=== PATIENT | male | born 1945 | race Caucasian/White ===

== ENCOUNTER 2016-07-30 06:57 | Day surgery (SDC) | payer OTHER ==
[2016-07-30] MEDS ORDERED: LR 1,000 ML IV ONE (07:42)
[2016-07-30] MEDS ORDERED: LIDOCAINE 1% 5 ML SDV ID PRN (07:42)
[2016-07-30] MEDS ORDERED: LIDOCAINE 1% 5 ML SDV ONE (07:44)
[2016-07-30] MEDS ORDERED: PROPOFOL/EMULSION 500 MG/50 ML BOTTLE IV ONE (08:42)
[2016-07-30] MEDS ORDERED: epHEDrine SULFATE 10 MG/ML SYR ONE ×2 (09:18→09:24)
--- NOTE | 2016-07-30 10:36 | GPN ---
[f rep st] PROCEDURE NOTE PREPROCEDURE DIAGNOSIS: Need for screening colonoscopy. POSTPROCEDURE DIAGNOSIS: Two small colon polyps, removed. PROCEDURE: Colonoscopy with snare. MEDICATION: Monitored anesthesia care. INDICATIONS: Darian Naylor is a 71-year-old gentleman here for screening colonoscopy. He had atrial fibrillation and takes Eliquis. His Eliquis was stopped 2 days prior to the procedure. The patient is ASA class 3. Risks and benefits of the procedure were discussed with the patient and consent obtained. Risks include, but not limited to, bleeding, perforation, risks related to sedation. DESCRIPTION OF PROCEDURE: The adult colonoscope was advanced to the terminal ileum which appeared normal. The cecum, appendiceal orifice, IC valve, ascending colon, hepatic flexure appeared normal. There were two 6 mm polyps along folds in the transverse colon which were removed with cold snare polypectomy technique and retrieved for pathology. The splenic flexure, descending colon, sigmoid colon and rectum were normal. Retroflexed views in the rectum were normal. IMPRESSION: Two transverse colon polyps removed using cold snare polypectomy technique. Each measured 6 mm in size. RECOMMENDATIONS: 1. Advance diet as tolerated. 2. Discharge to home with escort. 3. Okay to resume previous medications including Eliquis. 4. Follow up final pathology results. Pathology will be available within 10 days. 5. Repeat colonoscopy to be determined based on colon pathology. If the polyp is an adenomatous polyp, he should have a colonoscopy in 5 years. Thank you for allowing me to participate in the care of your patient. Please do not hesitate to call with questions. /[id number]/MODL MTDD
== END 2016-07-30 11:15 | disposition home or self-care (01) ==
LOC: FSGY 06:57
PROVIDERS: ATTEND Internal Medicine Gastroenterology
PROC: 0DBL8ZX Excision of Transverse Colon, Via Natural or Artificial Opening Endoscopic, Diagnostic (ICD-10-PCS; principal; 2016-07-30 08:45)
DX: Z12.11 Encounter for screening for malignant neoplasm of colon (principal); K63.5 Polyp of colon; I48.0 Paroxysmal atrial fibrillation; N40.0 Benign prostatic hyperplasia without lower urinary tract symptoms; Z79.01 Long term (current) use of anticoagulants
CPT/HCPCS: J2704

== ENCOUNTER 2016-11-20 10:08 | Emergency (ER) | payer OTHER ==
[2016-11-20 10:26] VITALS: TEMP 98
--- NOTE | 2016-11-20 10:26 | EDPHY ---
H & P Time Seen by Provider: 11/20/16 10:12 HPI/ROS: CHIEF COMPLAINT: Fall HISTORY OF PRESENT ILLNESS: Patient is a 71-year-old man who comes to the emergency department with a caregiver. He fell backwards down the steps yesterday. He refused to go to the hospital at that time. He was walking up the steps caring glass of water on a tray when he began to drop the water and lost his balance when he tried to catch it and fell backwards down the stairs. He is not sure how many steps he fell down. He has a small abrasion to the left parietal region. He denies neck pain. He has bruising to his left axilla and triceps region. Also to his left hip. He is ambulating without difficulty. He is unable to lift his left arm above his head which he is able to do a baseline. He denies loss of consciousness. He denies chest pain or shortness of breath. He has a history of CVA and NE and takes anticoagulants. REVIEW OF SYSTEMS: Constitutional: denies: chills, fever, recent illness, recent injury EENTM: denies: blurred vision, double vision, nose congestion Respiratory: denies: cough, shortness of breath Cardiac: denies: chest pain, irregular heart rate, lightheadedness, palpitations Gastrointestinal/Abdominal: denies: abdominal pain, diarrhea, nausea, vomiting, blood streaked stools Genitourinary: denies: dysuria, frequency, hematuria, pain Musculoskeletal: See HPI Skin: See HPI Neurological: denies: headache, numbness, paresthesia, tingling, dizziness, weakness Hematologic/Lymphatic: denies: blood clots, easy bleeding, easy bruising Immunologic/allergic: denies: HIV/AIDS, transplant EXAM: GENERAL: Well-appearing, well-nourished and in no acute distress. HEAD: Atraumatic, normocephalic. EYES: Pupils equal round and reactive to light, extraocular movements intact, sclera anicteric, conjunctiva are normal. ENT: TMs normal, nares patent, oropharynx clear without exudates. Moist mucous membranes. NECK: Normal range of motion, supple without lymphadenopathy or JVD. No step- offs or tenderness. LUNGS: Breath sounds clear to auscultation bilaterally and equal. No wheezes rales or rhonchi. HEART: Regular rate and rhythm without murmurs, rubs or gallops. ABDOMEN: Soft, nontender, normoactive bowel sounds. No guarding, no rebound. No masses appreciated. BACK: No CVA tenderness, no spinal tenderness, step-offs or deformities EXTREMITIES: Bruising to left elbow with small skin tears, bruising to left triceps region. Decreased range of motion of left arm , no pitting or edema. No clubbing or cyanosis. NEUROLOGICAL: Cranial nerves II through XII grossly intact. Normal speech, normal but slow gait with a cane. 5/5 strength, normal movement in all extremities, normal sensation PSYCH: Normal mood, normal affect. SKIN: Significant bruising as described above, small abrasion to left parietal region. Source: Patient Exam Limitations: No limitations - Medical/Surgical History Hx Asthma: No Hx Chronic Respiratory Disease: No Hx Diabetes: No Hx Cardiac Disease: No Hx Renal Disease: No Hx Cirrhosis: No Hx Alcoholism: No Hx HIV/AIDS: No Hx Splenectomy or Spleen Trauma: No Other PMH: Right ACL, Stroke, Left sided deficits, dvt, - Family History Significant Family History: No pertinent family hx - Social History Smoking Status: Never smoked Alcohol Use: Sober Drug Use: None Constitutional: Initial Vital Signs Temperature (C) 36.6 C 11/20/16 10:22 Heart Rate 70 11/20/16 10:22 Respiratory Rate 18 11/20/16 10:22 Blood Pressure 122/71 H 11/20/16 10:22 O2 Sat (%) 97 11/20/16 10:22 O2 Delivery Mode Room Air Allergies/Adverse Reactions: No Known Allergies Allergy (Verified 07/09/16 10:14) Home Medications: Medication Instructions Recorded Apixaban [Eliquis] 5 mg PO BID #60 tab 01/04/16 Tamsulosin HCl [Flomax 0.4 MG (*)] 0.4 mg PO DAILY #30 cap 01/04/16 Metoprolol Succinate 04/25/16 Eye Vitamin-Minerals Tablet 07/09/16 Medical Decision Making - Diagnostics Imaging Results: Imaging Impressions Abdomen CT 11/20/16 10:18 Impression: 1. Nondisplaced posterior left 12th rib fracture. 2. Minimal subcutaneous edema along the left greater trochanter. No acute hip/ pelvic fracture or evidence of active bleeding. 3. No evidence of acute solid organ or bowel injury. 4. Small nodular spleen is unchanged. Recommend MRI follow up as per Dr. Angel Saavedra's recommendation in April 2016. Findings discussed with Emergency Department physician, Dr. Dharmesh Jamison on November 20, 2016 at 11:[address] 11/20/16 10:18 Impression: 1. Acute nondisplaced posterior left 12th rib fracture. 2. Acute nondisplaced left-sided manubrial fracture. 3. No acute thoracic spine fracture. 4. No evidence of acute aortic injury. 5. Clear lungs. No pneumothorax or pulmonary contusion. Findings discussed with Emergency Department physician, Dharmesh Jamison on 2016, 11:[address] 11/20/16 10:18 Impression: 1. Remote infarct right insular cortex, inferior parietal lobe, and basal ganglia. 2. No hemorrhage, mass effect, or definite acute peripheral infarct. 3. Stable mild to moderate microvascular ischemic disease. 4. Stable mild to moderate age-related atrophy. Findings discussed with Dharmesh Jamison M.D. at 1127 hour, 11/20/2016. Humerus X-Ray 11/20/16 10:18 Impression: No evidence for acute fracture. Chronic findings as above. Cervical Spine CT 11/20/16 10:27 Impression: 1. No acute osseous abnormality seen about the cervical spine. 2. Mild to moderate degenerative disk disease. 3. Mild to moderate left-sided facet hypertrophy at C2-C3.. These findings were discussed by telephone with Dr. Dharmesh Jamison at 11:30 hrs. Imaging: Discussed imaging studies w/ call manager Radiologist ED Course/Re-evaluation: We discussed the CT results. The patient and caregiver are happy. He has an incentive spirometer that he will continue to use. He declines pain medication or prescription. His abrasions have been cleaned and dressed. We discussed recovery and indications for returning. Differential Diagnosis: Partial list of the Differential diagnosis considered include but were not limited to; contusion, abrasion, rib fracture and although unlikely based on the history and physical exam, I also considered pneumothorax, splenic injury, kidney injury, hip fracture, humeral head fracture, clavicle fracture intracranial injury, cervical spine is. I discussed these differential diagnoses and the plan with the patient as well as the usual and expected course. The patient understands that the diagnosis is provisional and that in medicine we are not always correct and that further workup is often warranted. Usual and customary warnings were given. All of the patient's questions were answered. The patient was instructed to return to the emergency department should the symptoms at all worsen or return, otherwise to followup with the physician as we discussed. - Data Points Laboratory Results: Laboratory Results 11/20/16 10:28 11/20/16 10:28 11/20/16 11/20/16 11/20/16 10: 10: 10: WBC 7.98 10^3/uL 10^3/uL (3.80-9.50) RBC 4.07 10^6/uL L 10^6/uL (4.40-6.38) Hgb 13.3 g/dL L g/dL (13.7-17.5) Hct 37.7 % L % (40.0-51.0) MCV 92.6 fL fL (81.5-99.8) MCH 32.7 pg pg (27.9-34.1) MCHC 35.3 g/dL g/dL (32.4-36.7) RDW 13.2 % % (11.5-15.2) Plt Count 216 10^3/uL 10^3/uL (150-400) MPV 9.0 fL fL (8.7-11.7) Neut % (Auto) 78.1 % H % (39.3-74.2) Lymph % (Auto) 10.2 % L % (15.0-45.0) [place] % (Auto) 11.3 % % (4.5-13.0) Eos % (Auto) 0.0 % L % (0.6-7.6) Baso % (Auto) 0.1 % L % (0.3-1.7) Nucleat RBC Rel Count 0.0 % % (0.0-0.2) Absolute Neuts (auto) 6.24 10^3/uL 10^3/uL (1.70-6.50) Absolute Lymphs (auto) 0.81 10^3/uL L 10^3/uL (1.00-3.00) Absolute Monos (auto) 0.90 10^3/uL H 10^3/uL (0.30-0.80) Absolute Eos (auto) 0.00 10^3/uL L 10^3/uL (0.03-0.40) Absolute Basos (auto) 0.01 10^3/uL L 10^3/uL (0.02-0.10) Absolute Nucleated RBC 0.00 10^3/uL 10^3/uL (0-0.01) Immature Gran % 0.3 % % (0.0-1.1) Immature Gran # 0.02 10^3/uL 10^3/uL (0.00-0.10) PT 14.2 SEC SEC (12.0-15.0) INR 1.13 (0.83-1.16) APTT 30.1 SEC SEC (23.0-38.0) Sodium 132 mEq/L L mEq/L (134-144) Potassium 4.3 mEq/L mEq/L (3.5-5.2) Chloride 97 mEq/L mEq/L (97-110) Carbon Dioxide 23 mEq/l mEq/l (22-31) Anion Gap 12 mEq/L mEq/L (8-16) BUN 13 mg/dL mg/dL (7-23) Creatinine 0.7 mg/dL mg/dL (0.7-1.3) Estimated GFR > 60 Glucose 111 mg/dL H mg/dL (70-100) Calcium 8.6 mg/dL mg/dL (8.5-10.4) Departure - Departure Disposition: Home, Routine, Self-Care Clinical Impression: Abrasion Rib fracture Qualifiers: Encounter type: initial encounter Rib fracture type: single rib Fracture type: closed Laterality: left Qualified Code(s): S22.32XA - Fracture of one rib, left side, initial encounter for closed fracture Contusion Qualifiers: Encounter type: initial encounter Contusion area: thoracic wall Contusion of thoracic wall detail: unspecified area of thoracic wall Qualified Code(s): S20.20XA - Contusion of thorax, unspecified, initial encounter Condition: Fair Instructions: Rib Fracture (ED), Abrasion (ED) Referrals: WILLIE EVANS [Other] - As per Instructions
[2016-11-20 10:34] LABS: % IMMATURE GRANULYOCYTES 0.3 % (0.0-1.1); ABSOLUTE IMMATURE GRANULOCYTES 0.02 10^3/uL (0.00-0.10); ADD DIFF? NO; ADD MORPH? NO; ADD SCAN? NO; ATYPICAL LYMPHOCYTE FLAG 10 (0-99); FRAGMENT RBC FLAG 0 (0-99); HEMATOCRIT 37.7 % (40.0-51.0); HEMOGLOBIN 13.3 g/dL (13.7-17.5); LEFT SHIFT FLG 0 (0-99); LIPEMIA HEMOLYSIS FLAG 90 (0-99); MEAN CELL HEMOGLOBIN 32.7 pg (27.9-34.1); MEAN CELL HEMOGLOBIN CONCENTR. 35.3 g/dL (32.4-36.7); MEAN CELL VOLUME 92.6 fL (81.5-99.8); PLATELET CLUMPS FLAG 0 (0-99); PLATELET COUNT 216 10^3/uL (150-400); RED BLOOD CELL COUNT 4.07 10^6/uL (4.40-6.38); RED CELL DISTRIBUTION WIDTH 13.2 % (11.5-15.2)
[2016-11-20] MEDS ORDERED: IOPAMIDOL (ISOVUE-300) 100 ML BTL IV ONE (10:43)
[2016-11-20 10:47] LABS: INR 1.13 (0.83-1.16); PROTIME(PATIENT) 14.2 SEC (12.0-15.0)
[2016-11-20 10:48] LABS: APTT 30.1 SEC (23.0-38.0)
[2016-11-20 10:50] LABS: ANION GAP 12 mEq/L (8-16); CALCIUM 8.6 mg/dL (8.5-10.4); CARBON DIOXIDE 23 mEq/l (22-31); CHLORIDE 97 mEq/L (97-110); CREATININE 0.7 mg/dL (0.7-1.3); GLOMERULAR FILTRATION RATE > 60; GLUCOSE 111 mg/dL (70-100); POTASSIUM 4.3 mEq/L (3.5-5.2); SODIUM 132 mEq/L (134-144)
[2016-11-20 12:04] VITALS: BP 139/96; PULSE 67; RESP 18; O2SAT 97
== END 2016-11-20 12:01 | disposition home or self-care (01) ==
LOC: CED 10:08
DX: S00.01XA Abrasion of scalp, initial encounter (principal); S22.32XA Fracture of one rib, left side, initial encounter for closed fracture; I25.2 Old myocardial infarction; Z86.73 Personal history of transient ischemic attack (TIA), and cerebral infarction without residual deficits; Z79.01 Long term (current) use of anticoagulants; W10.8XXA Fall (on) (from) other stairs and steps, initial encounter; Y99.8 Other external cause status; Y93.01 Activity, walking, marching and hiking
CPT/HCPCS: 70450; 71260; 72125; 73060; 74177; 99285; Q9967; 80048-PO; 85025-PO; 85610-PO; 85730-PO

== ENCOUNTER 2017-04-10 08:03 | Emergency (ER) | payer OTHER ==
[2017-04-10 08:19] VITALS: O2SAT 97
[2017-04-10 09:15] LABS: COLOR YELLOW; LEUKOCYTE ESTERASE,URINE NEGATIVE (NEGATIVE); NITRITE,URINE NEGATIVE (NEGATIVE)
--- NOTE | 2017-04-10 10:32 | EDPHY ---
H & P Time Seen by Provider: 04/10/17 08:14 HPI/ROS: 71-year-old male presenting playing of fall 5 days ago landing on his left arm left side presents today complaining of bruising to his left upper arm and left posterior ribs. No difficulty breathing patient denies any significant pain. His primary complaint is that he has decreased range of motion of his left shoulder. This family member is also concerned about a large bruise on his left upper arm. No fevers no chills No loss of consciousness Review of systems As per HPI General no fever no chills no weakness HEENT no eye pain no eye discharge. No eye redness, no sore throat Respiratory no cough, no shortness of breath Cardiac no chest pain, no peripheral edema GI no abdominal pain, no diarrhea, no constipation, no nausea, no vomiting no flank pain, no hematuria, no dysuria Musculoskeletal no myalgias, positive joint pain Heme positive easy bruising, no easy bleeding Endo no polyuria, no polydipsia Skin no rashes, no pruritus Neuro no syncope, no dizziness, no headaches Psych is no suicidal ideation, no homicidal ideation Past Medical/Surgical History: Atrial fibrillation Social History: No alcohol, no drugs Smoking Status: Never smoked Physical Exam: 71-year-old male alert and oriented in no acute distress nontoxic appearance, afebrile Atraumatic normocephalic Neck supple no JVD Lungs clear to auscultation bilaterally Heart regular rate and rhythm without murmur rub or gallop Abdomen nondistended bowel sounds present soft nontender Extremities lower extremities no cyanosis clubbing or edema Left upper extremity Ecchymosis extending and scattered from left shoulder to left elbow Lateral upper arm with hematoma approximately 5 x 5 cm Full range of motion of left shoulder left elbow left wrist digits Good distal pulses good capillary refill Patient able to flex biceps bilaterally, equal Patient with strong gwot ia/ilo intelligence support bilaterally, equal Slightly decreased range of motion at left shoulder, able to touch hand to top of head not able to align biceps against his ear Good external and internal rotation No evidence of gross laxity Constitutional: Initial Vital Signs Heart Rate 52 L 04/10/17 08:16 Respiratory Rate 16 04/10/17 08:16 Blood Pressure 133/66 H 04/10/17 08:16 O2 Sat (%) 97 04/10/17 08:16 O2 Delivery Mode Room Air Allergies/Adverse Reactions: No Known Allergies Allergy (Verified 04/10/17 08:13) Home Medications: Medication Instructions Recorded Metoprolol Succinate 04/25/16 Eye Vitamin-Minerals Tablet 07/09/16 Eliquis 04/10/17 Tamsulosin HCl 04/10/17 Medical Decision Making - Diagnostics Imaging Results: Imaging Impressions Shoulder X-Ray 04/10/17 08:36 Impression: No acute findings in the shoulder. Humerus X-Ray 04/10/17 08:37 Impression: No acute osseous findings. Ribs w/Chest X-Ray 04/10/17 08:38 Impression: No acute rib fracture identified. ED Course/Re-evaluation: Patient seen and evaluated for fall 5 days ago with ongoing X-rays negative for fracture Positive osteoarthritis Impression Left shoulder sprain Left upper arm contusion/hematoma Left lower posterior ribs contusion Plan May apply heat to area of hematoma Follow up with primary care physician as needed or if not improving Differential Diagnosis: Left shoulder dislocation, left shoulder sprain, left humeral head fracture, left upper arm contusion, left shoulder contusion, left rib contusion Left upper arm hematoma - Data Points Laboratory Results: 04/10/17 09:12 Urine Color YELLOW Urine Appearance CLEAR Urine pH 6.0 (5.0-7.5) Ur Specific [place] 1.015 (1.002-1.030) Urine Protein NEGATIVE (NEGATIVE) Urine Ketones NEGATIVE (NEGATIVE) Urine Blood NEGATIVE (NEGATIVE) Urine Nitrate NEGATIVE (NEGATIVE) Urine Bilirubin NEGATIVE (NEGATIVE) Urine Urobilinogen 0.2 EU EU (0.2-1.0) Ur Leukocyte Esterase NEGATIVE (NEGATIVE) Urine Glucose NEGATIVE (NEGATIVE) Departure - Departure Disposition: Home, Routine, Self-Care Clinical Impression: Sprain of left shoulder, Contusion of left upper arm, Contusion of rib on left side, Fall Condition: Good Instructions: Shoulder Sprain (ED), Hematoma (ED), Rib Contusion (ED) Referrals: Yoni Lakhani MD [Primary Care Provider] - As per Instructions
[2017-04-10 11:22] VITALS: BP 137/66; PULSE 57; RESP 20
== END 2017-04-10 10:38 | disposition home or self-care (01) ==
LOC: CED 08:03
DX: S43.402A Unspecified sprain of left shoulder joint, initial encounter (principal); S40.022A Contusion of left upper arm, initial encounter; S20.222A Contusion of left back wall of thorax, initial encounter; W18.39XA Other fall on same level, initial encounter
CPT/HCPCS: 71101-PO; 73030-PO; 73060-PO; 81003-PO

== ENCOUNTER 2018-04-28 17:38 | Inpatient (IN) | payer OTHER ==
--- NOTE | 2018-04-28 18:00 | EDPHY ---
HPI/HX/ROS/PE/MDM Narrative: CHIEF COMPLAINT: Shortness of breath HPI: The patient is an anticoagulated (Eliquis) 72 y/o male with a history atrial fibrillation complaining of a cough and shortness of breath, onset yesterday. Several hours ago the cough became productive and he had a subjective fever at home. The shortness of breath is exacerbated when he tries walking. Currently he is feeling short of breath while lying in bed. He denies headache, chest pain , abdominal pain, urinary or bowel complaints, numbness, paresthesias. He did receive a flu shot one week ago. REVIEW OF SYSTEMS: Aside from elements discussed in the HPI, a comprehensive 10 system review of systems is otherwise negative. PMH: Atrial fibrillation, CVA (2016) SOCIAL HISTORY: Family at bedside, lives in [place], retired PHYSICAL EXAM: General: Patient is alert. ENT: Eyes are normal to inspection. ENT inspection normal. Neck: Normal inspection. Full range of motion. Respiratory: Tachypenic, 3 word dyspnea, diminished lung sounds with coarse rhonchi bilaterally. Cardiovascular: Regular rate and rhythm. Strong peripheral pulses. Normal cap refill. Abdomen: The abdomen is nontender to palpation. There are no peritoneal signs. There are normal bowel sounds. Back: Normal to inspection. No tenderness to palpation. Skin: Normal color. No rash. Warm and dry. Extremities: Normal appearance. Full range of motion. Neuro: Oriented x3. Normal motor function. Normal sensory function. ED Course: 1812: Patient has an elevated troponin of 1.66 182: EKG was ordered and interpreted by myself. Please see [employer] system for official reading. 1830: Patient's lactate is elevated at 2.5 [place] [address]; chest x-ray still pending. 183: I spoke with the radiologist, who reports that there are no significant acute findings. 1840: Patient placed on BiPAP as he is still working to breathe. 1904: I reassessed the patient and discussed the plan for admission, which he is comfortable with. He also appears more comfortable and less hypoxic. Patient has stopped BiPAP. 2009: Patient is working hard to breath again; he will be placed on the BiPAP again. 2024: I consulted with the hospitalist service, Dr. Arredondo accepts admission of this patient. Respiratory PCR still pending; 750mg IV Levaquin and 125mg IV Solu -Medrol administered. 2110: Reassessed patient; he is agitate and tachycardic with a heart rate going up to 180. He is in rapid A-fib now; patient will be transferred to room 1. 2120: Reassessed patient, he is still in between rapid A-fib and SVT with a rate of 178 and is using accessory muscles to breathe. Repeat EKG ordered. 10mg IV Diltiazem administered. 2121: EKG was ordered and interpreted by myself. Please see [employer] system for official reading. 2123: Patient's heart rate has decreased to 110. EKG was ordered and interpreted by myself. Please see [employer] system for official reading. 2125: I consulted with the hospitalist regarding the change in the patient's status. This patient will need to be intubated and have an echocardiogram. 2140: Reassessed patient and discussed the risks and benefits regarding an intubation. He reports that is feeling more tired than when he initially presented to the emergency department. Additional 10mg IV Diltiazem administered as his rate has increased to 163. 2158: Reassessed patient, he is comfortable with plan for intubation. Dr. Arredondo has consulted with Dr. Hayes who has authorized the echo. Procedure: Rapid sequence intubation. Indication for the procedure was airway protection and respiratory failure. The patient was preoxygenated with 100% oxygen by face mask. The patient was given the following IV medications: 20mg IV Etomidate and 100mg IV succinylcholine. The patient was orally endotracheally intubated under direct visualization with a 7.5 ETT. In line stabilization was performed during the procedure. Tracheal intubation was confirmed with misting on the tube; breath sounds were auscultated equally bilaterally; appropriate color change with [place] [employer] CO2 detector. Chest X-ray shows ETT in good position. The procedure was performed by myself, Dr. Elder. Critical care time spent by me, Dr. Lorenzo, exclusively with this patient was 120 minutes, exclusive of PA time and exclusive of procedures. The organ system at risk was cardiopulmonary and I gave IV Diltiazem, placed him on a BiPAP and preformed a rapid sequence intubation to prevent worsening of the patients condition. - Data Points Imaging Results: Imaging Impressions Chest X-Ray 04/28/18 18:00 Impression: 1. Mild peribronchial thickening which can be seen with bronchitis/airways disease. 2. Additional findings as above. Imaging: Discussed imaging studies w/ block sawyer Radiologist, I viewed and interpreted images myself Laboratory Results: Laboratory Results 04/28/18 18:00 04/28/18 18:00 04/28/18 04/28/18 04/28/18 18:03 18:00 18:00 WBC RBC Hgb Hct MCV MCH MCHC RDW Plt Count MPV Neut % (Auto) Lymph % (Auto) [place] % (Auto) Eos % (Auto) Baso % (Auto) Nucleat RBC Rel Count Absolute Neuts (auto) Absolute Lymphs (auto) Absolute Monos (auto) Absolute Eos (auto) Absolute Basos (auto) Absolute Nucleated RBC Immature Gran % Seg Neutrophils % Band Neutrophils % Lymphocytes % Monocytes % Eosinophils % Basophils % Metamyelocytes % Myelocytes % Promyelocytes % Blast Cells % Immature Gran # Absolute Seg Neuts Absolute Band Neuts Absolute Lymphocytes Absolute Monocytes Absolute Eosinophils Absolute Basophils Absolute Metamyelocyte Absolute Myelocytes Absolute Promyelocytes Absolute Plasma Cells Nucleated RBCs RBC/WBC/PLT Morphology Absolute Blast Cells Plasma Cells % Platelet Estimate VBG Lactic Acid 2.5 mmol/L H mmol/L (0.7-2.1) Sodium 134 mEq/L L mEq/L (135-145) Potassium 4.3 mEq/L mEq/L (3.3-5.0) Chloride 98 mEq/L mEq/L (97-110) Carbon Dioxide 22 mEq/l mEq/l (22-31) Anion Gap 14 mEq/L mEq/L (6-14) BUN 15 mg/dL mg/dL (7-23) Creatinine 0.8 mg/dL mg/dL (0.7-1.3) Estimated GFR > 60 Glucose 157 mg/dL H mg/dL (70-100) Calcium 9.3 mg/dL mg/dL (8.5-10.4) POC Troponin I 1.66 ng/mL H ng/mL (0.00-0.08) NT-Pro-B Natriuret Pep 37141 pg/mL H pg/mL (0-125) 04/28/18 18:00 WBC 11.64 10^3/uL H 10^3/uL (3.80-9.50) RBC 4.36 10^6/uL L 10^6/uL (4.40-6.38) Hgb 13.8 g/dL g/dL (13.7-17.5) Hct 40.3 % % (40.0-51.0) MCV 92.4 fL fL (81.5-99.8) MCH 31.7 pg pg (27.9-34.1) MCHC 34.2 g/dL g/dL (32.4-36.7) RDW 13.4 % % (11.5-15.2) Plt Count 207 10^3/uL 10^3/uL (150-400) MPV 10.2 fL fL (8.7-11.7) Neut % (Auto) Not Reported Lymph % (Auto) Not Reported [place] % (Auto) Not Reported Eos % (Auto) Not Reported Baso % (Auto) Not Reported Nucleat RBC Rel Count Not Reported Absolute Neuts (auto) Not Reported Absolute Lymphs (auto) Not Reported Absolute Monos (auto) Not Reported Absolute Eos (auto) Not Reported Absolute Basos (auto) Not Reported Absolute Nucleated RBC Not Reported Immature Gran % Not Reported Seg Neutrophils % 62.0 % % Band Neutrophils % 23.0 % % Lymphocytes % 6.0 % % Monocytes % 9.0 % % Eosinophils % 0.0 % % Basophils % 0.0 % % Metamyelocytes % 0.0 % % Myelocytes % 0.0 % % Promyelocytes % 0.0 % % Blast Cells % 0.0 % % Immature Gran # Not Reported Absolute Seg Neuts 7.22 10^/uL H 10^/uL (1.70-6.50) Absolute Band Neuts 2.68 10^3/uL H 10^3/uL (0.00-0.70) Absolute Lymphocytes 0.70 10^3/uL L 10^3/uL (1.00-3.00) Absolute Monocytes 1.05 10^3/uL H 10^3/uL (0.30-0.80) Absolute Eosinophils 0.00 10^3/uL L 10^3/uL (0.03-0.40) Absolute Basophils 0.00 10^3/uL L 10^3/uL (0.02-0.10) Absolute Metamyelocyte 0.00 10^3/mL 10^3/mL (0.00-0.00) Absolute Myelocytes 0.00 10^3/mL 10^3/mL (0.00-0.00) Absolute Promyelocytes 0.00 10^3/uL 10^3/uL (0.00-0.00) Absolute Plasma Cells 0.00 10^3/uL 10^3/uL (0.00-0.00) Nucleated RBCs 0 /100 WBC /100 WBC (0-0) RBC/WBC/PLT Morphology NORMAL (NORMAL) Absolute Blast Cells 0.00 10^3/uL 10^3/uL (0.00-0.00) Plasma Cells % 0.0 % % Platelet Estimate ADEQUATE (ADEQ) VBG Lactic Acid Sodium Potassium Chloride Carbon Dioxide Anion Gap BUN Creatinine Estimated GFR Glucose Calcium POC Troponin I NT-Pro-B Natriuret Pep Medications Given: Diltiazem HCl (Cardizem 25 Mg/5 Ml Vial) 10 mg IVP ONCE AUREA Stop: 10/25/18 22:14 Last Admin: 04/28/18 22:05 Dose: 10 mg Diltiazem HCl (Cardizem 25 Mg/5 Ml Vial) 10 mg IVP ONCE AUREA Stop: 10/25/18 22:14 Last Admin: 04/28/18 22:04 Dose: 10 mg Propofol (Diprivan 10 Mg/Ml (Premix)) 100 mls @ 0 mls/hr IV CONT AUREA; Titrate PRN Reason: Protocol Stop: 10/25/18 22:59 Last Admin: 04/28/18 22:12 Dose: 100 mls Discontinued Medications Albuterol/Ipratropium (Duoneb) 3 ml IH EDNOW ONE Stop: 04/28/18 20:41 Last Admin: 04/28/18 21:02 Dose: 3 ml Etomidate (Etomidate) 20 mg IVP ONCE ONE Stop: 04/28/18 22:03 Last Admin: 04/28/18 22:05 Dose: 20 mg Levofloxacin/Dextrose (Levaquin 750 Mg (Premix)) 150 mls @ 100 mls/hr IV EDNOW ONE PRN Reason: Protocol Stop: 04/28/18 21:44 Last Admin: 04/28/18 20:24 Dose: 150 mls Methylprednisolone Sodium Succinate (Solu-Medrol) 125 mg IVP EDNOW ONE Stop: 04/28/18 20:40 Last Admin: 04/28/18 21:02 Dose: 125 mg Succinylcholine Chloride (Quelicin) 100 mg IVP ONCE ONE Stop: 04/28/18 22:03 Last Admin: 04/28/18 22:06 Dose: 100 mg Point of Care Test Results: Chemistry 04/28/18 18:03 POC Troponin I 1.66 ng/mL H ng/mL (0.00-0.08) General Time Seen by Provider: 04/28/18 17:57 Initial Vital Signs: Initial Vital Signs Temperature (C) 36.5 C 04/28/18 17:42 Heart Rate 82 04/28/18 17:42 Respiratory Rate 24 H 04/28/18 17:42 Blood Pressure 108/74 04/28/18 17:42 O2 Sat (%) 93 04/28/18 17:42 O2 Delivery Mode Bi-Pap O2 (L/minute) 2 Allergies/Adverse Reactions: No Known Allergies Allergy (Verified 04/28/18 17:42) Home Medications: Medication Instructions Recorded Apixaban [Eliquis] 5 mg PO BID 04/28/18 Tamsulosin HCl [Flomax 0.4 MG (*)] 0.4 mg PO HS 04/28/18 Departure - Departure Disposition: [facility] Inpatient Acute Clinical Impression: Rapid atrial fibrillation, Elevated troponin Acute respiratory failure Qualifiers: Respiratory failure complication: unspecified whether with hypoxia or hypercapnia Qualified Code(s): J96.00 - Acute respiratory failure, unspecified whether with hypoxia or hypercapnia Condition: Critical Report Scribed for: David Lorenzo Report Scribed by: Zehra Tran Date of Report: 04/28/18 Time of Report: 18:27 Physician Review and Approval Statement: Portions of this note were transcribed by an ED scribe. I personally performed the history, physical exam, and medical decision making; and confirm the accuracy of the information in the transcribed note.
[2018-04-28 18:25] LABS: PLATELET COUNT 207 10^3/uL (150-400)
[2018-04-28] MEDS ORDERED: methylPREDNISolone SOD SUCC 125 MG/2 ML VIAL IVP ONE (20:39)
[2018-04-28] MEDS ORDERED: ONDANSETRON DISINTEGRATING 4 MG TAB PO PRN (20:40)
[2018-04-28] MEDS ORDERED: IPRATROPIUM/ALBUTEROL 3 ML DEYVIAL IH ONE (20:40)
[2018-04-28] MEDS ORDERED: ACETAMINOPHEN 325 MG TAB PO PRN (20:40)
[2018-04-28] MEDS ORDERED: ONDANSETRON 4 MG/2 ML VIAL IVP PRN (20:40)
[2018-04-28] MEDS ORDERED: DILTIAZEM 25 MG/5 ML VIAL IVP ONE (21:20)
[2018-04-28] MEDS ORDERED: APIXABAN 5 MG TAB PO SCH (21:30)
[2018-04-28] MEDS ORDERED: SUCCINYLCHOLINE CHLORIDE 200 MG/10 ML VIAL IVP ONE (22:02)
[2018-04-28] MEDS ORDERED: ETOMIDATE 40 MG/20 ML INJ IVP ONE (22:02)
[2018-04-28] MEDS ORDERED: PROPOFOL/EMULSION 1,000 MG/100 ML BOTTLE IV ONE (22:02)
[2018-04-28] MEDS ORDERED: DILTIAZEM 25 MG/5 ML VIAL IVP SCH ×2 (22:15)
[2018-04-28] MEDS ORDERED: fentaNYL 100 MCG/2 ML INJ IVP ONE (22:25)
--- NOTE | 2018-04-28 22:50 | PDGENHP ---
History and Physical - Chief Complaint Acute shortness of breath - History of Present Illness Primary care provider: Unknown Primary director of solutions architecture: Unknown HPI: 72-year-old male presenting with acute shortness of breath with associated sore throat, productive cough, subjective fever, onset of symptoms on the day prior to this presentation. Upon arrival, the patient was notably 2- 3 word dyspneic, with audibly labored breathing. His breath sounds were interpreted be secondary to acute reactive airway disease, and he was administered IV steroids, DuoNeb treatment, IV antibiotics. His venous lactic acid level was also elevated, but given the absence of hypotension, it was decided not to initiate him on the sepsis protocol for patient safety reasons, [place] [address], his troponin was elevated 1.66, and we were concerned for potentiate Ng congestive heart failure exacerbation if he received aggressive IV fluids. During the course of his emergency department evaluation, the patient was placed on BiPAP therapy but continued to demonstrate significant dyspnea, with a respiratory rate between 30 and 40, visibly labored, visibly tiring out. Although his ABG demonstrated a low pCO2 and subsequently slightly alkalotic pH of 7.44, this was believed to be most likely secondary to his significant dyspnea and compensation for his struggling respiratory status. The concern was that he would decompensate further, and we had conversations with the patient regarding intubation. He elected for intubation and it was performed safely. During this course, his heart rate increased to the 160s, notably atrial fibrillation versus SVT on telemetry, and he received 2 doses of IV diltiazem. He subsequently had a stat echocardiogram performed which demonstrated an ejection fraction less than 30%. 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 DVT - Surgical History Reports: no pertinent surgical hx - Family History Additional family history: Father with CVA - Social History Smoking Status: Never smoked Alcohol Use: None Drug Use: None Additional social history: Unclear living situation Review of Systems Review of Systems: ROS: 10pt was reviewed & negative except for what was stated in HPI & below Constitutional: Reports: fever EENMT: Reports: sore throat Respiratory: Reports: shortness of breath, other (Visible respiratory distress) Physical Exam Physical Exam: Temp Pulse Resp BP Pulse Ox 36.2 C 160 H 32 H 136/96 H 98 04/28/18 20:00 04/28/18 20:00 04/28/18 20:00 04/28/18 20:00 04/28/18 20:00 Constitutional: not in pain, uncomfortable, No no apparent distress (Moderate amount of distress) Eyes: PERRL, anicteric sclera, EOMI Ears, Nose, Mouth, Throat: moist mucous membranes, hearing normal Cardiovascular: irregularly irregular, tachycardia, edema (Trace bilateral lower extremities), No systolic murmur Respiratory: bronchial breath sounds (Severe bilaterally), respiratory distress (Visibly labored breathing with 2 word dyspnea, use of accessory muscles), rhonchi (On inspiration bilaterally), other (No upper airway wheezes or stridor) Gastrointestinal: normoactive bowel sounds, soft, non-tender abdomen, no palpable masses Neurologic: AAOx3, No facial droop Psychiatric: flat affect, poor memory, other (Asking questions repetitively), No agitated Lymph, Heme, Immunologic: no cervical LAD Lab Data & Imaging Review 04/28/18 18:00 04/28/18 18:00 WBC 11.64 10^3/uL (3.80-9.50) H 04/28/18 18:00 RBC 4.36 10^6/uL (4.40-6.38) L 04/28/18 18:00 Hgb 13.8 g/dL (13.7-17.5) 04/28/18 18:00 Hct 40.3 % (40.0-51.0) 04/28/18 18:00 MCV 92.4 fL (81.5-99.8) 04/28/18 18:00 MCH 31.7 pg (27.9-34.1) 04/28/18 18:00 MCHC 34.2 g/dL (32.4-36.7) 04/28/18 18:00 RDW 13.4 % (11.5-15.2) 04/28/18 18:00 Plt Count 207 10^3/uL (150-400) 04/28/18 18:00 MPV 10.2 fL (8.7-11.7) 04/28/18 18:00 Neut % (Auto) Not Reported 04/28/18 18:00 Lymph % (Auto) Not Reported 04/28/18 18:00 [place] % (Auto) Not Reported 04/28/18 18:00 Eos % (Auto) Not Reported 04/28/18 18:00 Baso % (Auto) Not Reported 04/28/18 18:00 Nucleat RBC Rel Count Not Reported 04/28/18 18:00 Absolute Neuts (auto) Not Reported 04/28/18 18:00 Absolute Lymphs (auto) Not Reported 04/28/18 18:00 Absolute Monos (auto) Not Reported 04/28/18 18:00 Absolute Eos (auto) Not Reported 04/28/18 18:00 Absolute Basos (auto) Not Reported 04/28/18 18:00 Absolute Nucleated RBC Not Reported 04/28/18 18:00 Immature Gran % Not Reported 04/28/18 18:00 Seg Neutrophils % 62.0 % 04/28/18 18:00 Band Neutrophils % 23.0 % 04/28/18 18:00 Lymphocytes % 6.0 % 04/28/18 18:00 Monocytes % 9.0 % 04/28/18 18:00 Eosinophils % 0.0 % 04/28/18 18:00 Basophils % 0.0 % 04/28/18 18:00 Metamyelocytes % 0.0 % 04/28/18 18:00 Myelocytes % 0.0 % 04/28/18 18:00 Promyelocytes % 0.0 % 04/28/18 18:00 Blast Cells % 0.0 % 04/28/18 18:00 Immature Gran # Not Reported 04/28/18 18:00 Absolute Seg Neuts 7.22 10^/uL (1.70-6.50) H 04/28/18 18:00 Absolute Band Neuts 2.68 10^3/uL (0.00-0.70) H 04/28/18 18:00 Absolute Lymphocytes 0.70 10^3/uL (1.00-3.00) L 04/28/18 18:00 Absolute Monocytes 1.05 10^3/uL (0.30-0.80) H 04/28/18 18:00 Absolute Eosinophils 0.00 10^3/uL (0.03-0.40) L 04/28/18 18:00 Absolute Basophils 0.00 10^3/uL (0.02-0.10) L 04/28/18 18:00 Absolute Metamyelocyte 0.00 10^3/mL (0.00-0.00) 04/28/18 18:00 Absolute Myelocytes 0.00 10^3/mL (0.00-0.00) 04/28/18 18:00 Absolute Promyelocytes 0.00 10^3/uL (0.00-0.00) 04/28/18 18:00 Absolute Plasma Cells 0.00 10^3/uL (0.00-0.00) 04/28/18 18:00 Nucleated RBCs 0 /100 WBC (0-0) 04/28/18 18:00 RBC/WBC/PLT Morphology NORMAL (NORMAL) 04/28/18 18:00 Absolute Blast Cells 0.00 10^3/uL (0.00-0.00) 04/28/18 18:00 Plasma Cells % 0.0 % 04/28/18 18:00 Platelet Estimate ADEQUATE (ADEQ) 04/28/18 18:00 Puncture Site NONE GIVEN 04/28/18 21:30 Patient Temperature 35.9 DEGREES 04/28/18 21:30 pCO2 28 mmHg (34-38) L 04/28/18 21:30 pO2 325 mmHg (65-75) H 04/28/18 21:30 Total CO2 20 mEq/L (23-27) L 04/28/18 21:30 ABG pH 7.44 (7.35-7.45) 04/28/18 21:30 ABG PO2/FiO2 Ratio 325 RATIO 04/28/18 21:30 ABG HCO3 19 mEq/L (22-26) L 04/28/18 21:30 ABG O2 Saturation 99 % (92-95) H 04/28/18 21:30 ABG Base Excess -3.4 mEq/L (-2.5-2.5) L 04/28/18 21:30 VBG Lactic Acid 2.5 mmol/L (0.7-2.1) H 04/28/18 18:00 O2 Concentration % 100 % (0-100) 04/28/18 21:30 Expiratory Pressure 6 04/28/18 21:30 Inspiratory Pressure 18 04/28/18 21:30 Mode BiPAP YES 04/28/18 21:30 Sodium 134 mEq/L (135-145) L 04/28/18 18:00 Potassium 4.3 mEq/L (3.3-5.0) 04/28/18 18:00 Chloride 98 mEq/L (97-110) 04/28/18 18:00 Carbon Dioxide 22 mEq/l (22-31) 04/28/18 18:00 Anion Gap 14 mEq/L (6-14) 04/28/18 18:00 BUN 15 mg/dL (7-23) 04/28/18 18:00 Creatinine 0.8 mg/dL (0.7-1.3) 04/28/18 18:00 Estimated GFR > 60 04/28/18 18:00 Glucose 157 mg/dL (70-100) H 04/28/18 18:00 Calcium 9.3 mg/dL (8.5-10.4) 04/28/18 18:00 POC Troponin I 1.66 ng/mL (0.00-0.08) H 04/28/18 18:03 NT-Pro-B Natriuret Pep 50617 pg/mL (0-125) H 04/28/18 18:00 Visualized and Interpreted Chest x-ray results: Yes Chest X-Ray results: other (Diffuse peribronchial infiltrates without any focal consolidation or pleural effusions) Visualized and Interpreted EKG results: Yes EKG Interpretation: Positive for: other (Initial EKG with normal sinus mechanism , Q-wave in lead 3, PC, then subsequent telemetry demonstrating rapid atrial fibrillation with a rate around 160) Assessment & Plan Assessment: 72-year-old male presents with acute respiratory failure secondary to acute reactive airway exacerbation most likely triggered by either an atypical pneumonia or a viral precipitant, resulting in likely type 2 NSTEMI and stress- induced cardiomyopathy Plan: 1. Acute respiratory failure. Evidenced by visibly labored breathing, respiratory distress, 2 word dyspnea, use of accessory muscles, initially requiring BiPAP, then not responding to BiPAP with an ongoing respiratory rate between 30 and 40 with visual tiring -after discussion with patient the emergency department by both myself and Dr. David Lorenzo, the patient elected for intubation, and this has been safely perform -per Dr. Lorenzo, there were no upper airway obstructions that the patient did have a foul-smelling sputum -continue on ventilator support, repeat ABG in 1 hr, repeat subsequent ABGs as needed -repeat x-ray demonstrating some increased pulmonary infiltrates, suspect that these may be from atypical pneumonia or possible development of ARDS -will repeat chest x-ray in a.m. 2. Acute reactive airway exacerbation. Evidenced by diffuse bronchial breath sounds with subsequent respiratory failure outlined above -most likely triggered by either viral precipitant or atypical bacterial pneumonia -continue IV Solu-Medrol 125 q.6 hours -continue scheduled duo nebs q.6 hours -continue IV levofloxacin 3. Possible pneumonia. Viral versus bacterial, check procalcitonin level, repeat x-ray in a.m. -checking respiratory viral panel, sending sputum culture, sending urine Legionella, check blood cultures -empirically given IV levofloxacin, continue 4. Acute lactic acidosis. Unclear whether this was secondary to myocardial ischemia verses distal end-organ hypoperfusion -cleared with stabilization of above, hold on IV fluids given potential for inducing congestive heart failure 5. Atrial fibrillation. Paroxysmal, several episodes of acute rapid ventricular response triggered by above -now that we know that his ejection fraction is less than 30%, I would favor IV amiodarone if needed for rate and/or rhythm control overnight -continue Eliquis -his rate may favorably respond to stabilization of his respiratory status above , monitor on telemetry 6. Type 2 NSTEMI. Evidenced by troponin of 1.66, most likely secondary to acute events outlined above -repeat troponin level tonight and again in a.m. -monitor on telemetry given high risk for ventricular arrhythmias -hold on beta-che given reactive airway exacerbation -will preemptively give aspirin and statin since it is unclear whether the patient did experience a type 1 event -will check LDL, A1c 7. Acute stress-induced cardiomyopathy. Unclear whether this is ischemic versus nonischemic, echo read by Dr. Hayes currently pending, initial preliminary less than 30% Diet. NPO, OG tube Prophylaxis. High risk patient, continue Eliquis Code. Full, discussed with patient in the emergency department prior to intubation Disposition. Anticipated discharge is uncertain this time, inpatient admission status given anticipated length stay greater than 48 hr for reasonable medical necessity including acute respiratory failure with high risk comorbid reactive airway exacerbation, type 2 NSTEMI, rendering patient critically ill with high risk of worsening morbidity and/or mortality secondary to the combination of issues outlined above. 70 min of critical care time were spent with this patient, at bedside in the emergency department as well as coordinating the patient's care with Abigail Dong De La Garza, specifically addressing the patient's respiratory failure and worsening cardiac status.
[2018-04-28] MEDS ORDERED: PROPOFOL/EMULSION 100 ML IV SCH (23:00)
[2018-04-28] MEDS ORDERED: fentaNYL 100 MCG/2 ML INJ ONE (23:13)
[2018-04-28] MEDS ORDERED: fentaNYL/NACL 100 ML IV SCH (23:30)
--- NOTE | 2018-04-28 23:44 | ECHO ---
[email or web address] [address] [address] Main: [phone] Fax: Transthoracic Echocardiogram Name: ANDRIA ENGLAND MR#: [id number] Study Date: 04/28/2018 Study Time: 10:30 PM Date of : 1945 Age: 72 year(s) Height: 170.2 cm (67 in.) Weight: 80.29 kg (177 lb.) BSA: 1.92 m2 Gender: Male Examination: Echo Indication: New intubation, Acute Pulmonary HTN Image Quality: Contrast: Requested by: Freddie Arredondo BP: 104 mmHg/66 mmHg Heart Rate: Rhythm: Normal sinus rhythm with ectopy Indication: New intubation, Acute Pulmonary HTN Procedure Staff Chest Painting Leader: Reggie Farmer RDCS Reading Physician: Cristina Hayes MD Requesting Provider: Conclusions: Mildly dilated left ventricle. No LV hypertrophy. Moderately to severely reduced systolic function. There is global hypokinesis, with LV dysschrony and a estimated ejection fraction of 30%. Normal size right ventricle. Normal RV function. Mild mitral valve regurgitation is present. Pulmonary artery pressure is not obtained due to inadequate TR jet. No pericardial effusion. Compared with 11/2015 LVEF is now moderately to severely reduced Measurements: Chambers Valvular Assessment AV/MV Valvular Assessment TV/PV Normal Normal Normal Name Value Range Name Value Range Name Value Range Ao Maribel (MM): 3.0 cm (2.2 cm-3.7 MV E Vmax: 0.90 m/s ( - ) PV Vmax: 1.05 m/s (0.6 m/s-0.9 cm) MV A Vmax: 0.46 m/s ( - ) m/s) IVSd (2D): 0.9 cm (0.6 cm-1.1 MV E/A: 1.96 ( - ) PV PGmax: 4 mmHg ( - ) cm) LVDd (2D): 5.8 cm (4.2 cm-5.9 cm) LVDs (2D): 5.1 cm (2.1 cm-4 cm) LVPWd (2D): 1.0 cm (0.6 cm-1 cm) Continued Measurements: Chambers Valvular Assessment AV/MV Name Value Name Value Patient: ANDRIA ENGLAND Study Date: 04/28/2018 Page 1 of 2 10:30 PM LADs Lon.4 cm MV E/E' Septal: 18.20 LA Area: 17.0 cm2 MV E/E' Lateral: 16.50 Findings: Left Ventricle: Mildly dilated left ventricle. No LV hypertrophy. Moderately to severely reduced systolic function. There is global hypokinesis, with LV dysschrony and a estimated ejection fraction of 30%. Right Ventricle: Normal size right ventricle. Normal RV function. Left Atrium: The left atrium is normal in size. Right Atrium: The right atrium is normal in size. Mitral Valve: The mitral valve is normal in appearance. Mild mitral valve regurgitation is present. Aortic Valve: The aortic valve is tri-leaflet. There is no aortic valve regurgitation. Tricuspid Valve: The tricuspid valve is normal in appearance and function. Pulmonary artery pressure is not obtained due to inadequate TR jet. Pulmonic Valve: The pulmonic valve is normal in appearance and function. Aorta: The aorta is normal. Pericardium: No pericardial effusion. Exam Comments: (No Signature Object) Patient: ANDRIA ENGLAND Study Date: 04/28/2018 Page 2 of 2 10:30 PM [id number]
[2018-04-28] MEDS ORDERED: FUROSEMIDE 40 MG/4 ML VIAL IVP ONE (23:59)
[2018-04-29] MEDS ORDERED: IPRATROPIUM/ALBUTEROL 3 ML DEYVIAL IH SCH
[2018-04-29] MEDS ORDERED: ETOMIDATE 40 MG/20 ML INJ ONE (00:06)
[2018-04-29] MEDS ORDERED: SUCCINYLCHOLINE CHLORIDE 200 MG/10 ML SYR IVP ONE (00:06)
[2018-04-29] MEDS ORDERED: PROPOFOL/EMULSION 100 ML IV SCH (00:10)
[2018-04-29] MEDS: AZITHROMYCIN IV 500 MG in NS 250 ML IV SCH ×2 (00:18→20:01)
[2018-04-29] MEDS: ASPIRIN 325 MG TAB TUBE SCH ×2 (00:18→08:12)
[2018-04-29] MEDS: ATORVASTATIN CALCIUM 40 MG TAB TUBE SCH ×2 (00:26→08:12)
[2018-04-29] MEDS: ALBUTEROL 60 PUFFS/8 GM MDI IH SCH ×3 (01:40→07:53)
[2018-04-29] MEDS ORDERED: ALTEPLASE 2 MG VIAL IVP PRN (02:19)
[2018-04-29] MEDS ORDERED: methylPREDNISolone SOD SUCC 125 MG/2 ML VIAL IVP SCH (05:00)
[2018-04-29 05:35] LABS: PLATELET COUNT 172 10^3/uL (150-400)
[2018-04-29] MEDS: APIXABAN 5 MG TAB TUBE SCH ×2 (08:12→20:01)
[2018-04-29] MEDS ORDERED: ENOXAPARIN 40 MG/0.4 ML SYR SC SCH (09:00)
[2018-04-29] MEDS ORDERED: FUROSEMIDE 40 MG/4 ML VIAL IVP ONE (09:30)
[2018-04-29] MEDS ORDERED: ALBUTEROL 60 PUFFS/8 GM MDI IH PRN (09:30)
--- NOTE | 2018-04-29 09:38 | HOSPPROG ---
Hospitalist Progress Note Assessment/Plan: 72 yo M a/w AHRF, new systolic chf and rhinovirus infection AHRF: cxr underwhelming in terms of cause no focal infiltrate, significant pulm edema PE considered, anticoag noted suspect viral pneumonitis continue steroids at lower dose vent wean today sCHF: new decrement in EF not tachy on presentation consider viral cardiomyopathy give another dose lasix today ?CAP: reasonable to treat as atypical pneumonia sepsis: not AF: rate controlled on eliquis dispo: ICU 40 min crit care Subjective: case d/w dr del valle. cxr w small RLL atelectasis/effusion, no major airspace disease. echo findings reviewed/noted Objective: Vital Signs Temp Pulse Resp BP Pulse Ox 37.3 C 72 16 115/70 98 04/29/18 08:00 04/29/18 09:00 04/29/18 09:00 04/29/18 09:00 04/29/18 09:00 Microbiology 04/29/18 00:44 - Final Sputum, Induced/Suctioned Laboratory Results 04/29/18 05:25 04/29/18 05:25 04/28/18 04/29/18 04/30/18 05:59 05:59 05:59 Intake Total 1437 Output Total 615 Balance 822 - Physical Exam Constitutional: other (intubated, alert, anxious) Eyes: PERRL, anicteric sclera Ears, Nose, Mouth, Throat: moist mucous membranes, hearing normal Cardiovascular: regular rate and rhythym, no murmur, rub, or gallop, JVD, No edema Respiratory: no respiratory distress, other (rhoncorous anterolat) Gastrointestinal: normoactive bowel sounds, soft, non-tender abdomen Genitourinary: no bladder fullness, means in urethra Skin: warm, normal color Musculoskeletal: full muscle strength, no muscle tenderness Neurologic: AAOx3, sensation intact bilaterally Psychiatric: interacting appropriately ICD10 Worksheet Patient Problems: Problems Problem Status Onset Elevated troponin Acute Rapid atrial fibrillation Acute Shortness of breath Acute Elevated troponin I level Acute Fall Acute Ischemic stroke Acute Rhabdomyolysis Acute
--- NOTE | 2018-04-29 09:40 | PDMN ---
Medical Necessity Medical necessity: Pt meets inpt criteria per MD order and MCG M-100, Chronic Obstructive Pulmonary Disease. 72 y/o admitted w/acute respiratory failure requiring intubation, high risk comorbid reactive airway exacerbation, type 2 NSTEMI w/troponin of 1.66, acute lactic acidosis, possible pneumonia, atrial fibrillation w/episodes of RVR. Ongoing ICU monitoring/treatment, anticipate> 2MN for critically ill pt.
--- NOTE | 2018-04-29 12:26 | ASMTCASEMG ---
Living Arrangements What is your living Answers: Alone arrangement? Who do you live with? Type Of Residence What kind of residence do Answers: House you live in? Discharge Plan Comments Coordination Status Comments Notes: Patient is a 72yo single male with acute respiratory failure secondary to acute reactive airway exacerbation. Patient was admitted for acute respiratory failure, possible pneumonia, acute reactive airway exacerbation, acute lactic acidosis, and atrial fibrillation. OT/PT have been ordered. Patient has a caregiver, Cordelia Ac. ([phone]) D/C plan TBD. CM will follow. Date Signed: 04/29/2018 12:25 PM Electronically Signed By:Gracy Mchugh LCSW
[2018-04-29] MEDS: CEPACOL LOZENGE PO PRN ×4 (12:50→20:01)
[2018-04-29] MEDS: methylPREDNISolone SOD SUCC 125 MG/2 ML VIAL IVP SCH ×2 (12:51→17:23)
--- NOTE | 2018-04-29 15:57 | GCON ---
PULMONARY CONSULTATION DATE OF CONSULTATION: 04/29/2018 HISTORY OF PRESENT ILLNESS: This patient is a 72-year-old male with a history of remote stroke, atri al fibrillation, and syncope who was in his usual state of health until a few days ago when he develo ped a sore throat associated with shortness of breath and congestion. [facility] and was found to have a respiratory rate of 30 to 40 per minute and was placed on BiPAP briefly ; however, he had very poor tolerance of this and because of his work of breathing was urgently intub ated. His workup revealed a chest x-ray that was fairly unremarkable, but his BNP was 19,000, and an echoca rdiogram revealed an ejection fraction of 30%. His white count was 11.6 on arrival, but his procalci tonin was only 0.4. He stabilized overnight when he was treated with steroids, as well as bronchodil ators for presumed reactive airway disease. He was apparently quite wheezy at the time of his arriva l in the emergency department. On my arrival to his room this morning, he was quite stable on ventilator with very minimal sedation and was breathing quite easily. We put him on a CPAP trial for about half an hour, followed by Sammy tran over concerns about pulmonary edema, but he tolerated these well and was extubated. He said that he had a similar experience in the past, but was able to treat that with [id number] medications . He denied a history of smoking and no history of aspiration or asthma. REVIEW OF SYSTEMS: Otherwise negative. PAST MEDICAL HISTORY: Includes: 1. Atrial fibrillation. 2. Stroke with an undetectable left-sided deficit. 3. Calf DVT. 4. BPH. 5. 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 6. Syncope. 7. Rhabdomyolysis. PAST SURGICAL HISTORY: Only includes ACL repair. SOCIAL HISTORY: He does drink alcohol daily, but no known alcohol withdrawal in the past and nonsmok er. FAMILY HISTORY: Includes remote stroke. CURRENT MEDICATIONS: Include azithromycin, Solu-Medrol, Flomax. PHYSICAL EXAM: VITAL SIGNS: At the time of my initial evaluation, which was at about 8 o'clock this morning, his blood pressure was 115/70, heart rate 72, normal sinus rhythm, respirations 16, oxygen saturation 98% on ventilator. GENERAL: He was awake and alert, able to follow commands and answer y es and no questions quite easily. He was in no apparent distress and not using accessory muscles for breathing. HEENT: Pupils equally round and reactive to light, nonicteric, and noninjected. Mucous membranes are moist from what I could tell without evidence of thrush. NECK: Supple, without adeno adolfo or jugular vein distention. LUNGS: Breath sounds were clear to auscultation bilaterally witho ut wheezes, rubs, or rales. HEART: Sounds were distant, but had a regular rate and rhythm without o bvious murmur. ABDOMEN: Soft, nontender, nondistended without hepatosplenomegaly. EXTREMITIES: No clubbing, cyanosis, or edema. OBJECTIVE DATA: Includes his initial chest x-ray showing peribronchial thickening only, but no subst antial infiltrate. His white count on arrival was 11.6, hematocrit 40, platelets 207. Basic metabolic panel was normal. Procalcitonin was 0.4. Troponin was 1.6. BNP 19,000. Echocardiogram revealed an ejection fraction of 30%, but a normal right ventricular function and no T R jet, so no pulmonary hypertension Respiratory viral panels revealed rhinovirus. ASSESSMENT/PLAN: 1. Acute respiratory failure with hypoxemia. The etiology here is quite unclear, although his sever kylee elevated BNP and very low ejection fraction suggest a cardiac cause. I do not believe that he pena d an acute coronary syndrome and that his minor troponin elevation was just due to leak. He may have had a viral myocarditis. In any case, his respiratory failure seems to have resolved quite easily. He could have had a mucus plug as well that would go away so quickly. In any case, he is on a nasal cannula at this point. I encouraged early ambulation titrating his oxygen as tolerated and using in centive spirometry. I do not believe he has asthma, although I think another day of steroids is reas onable at this time, as well as his antibiotics. Depending on how he does over the next couple of da ys, we can probably get rid of his steroids fairly quickly and go to p.r.n. nebulizers only. Eventua lly, he will need some pulmonary function tests to better understand his physiology. 2. 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 The prognosis should be reasonable and we will have to recheck an echocardiogram in the near future. I t hink Cardiology involvement would probably be a good idea. 3. Atrial fibrillation. He appears to be in sinus rhythm at this time. He did briefly have atrial fibrillation last night, but converted on his own. A total of about 40 minutes of critical care time was required to evaluate this patient who was quite ill on the ventilator at my initial evaluation. /[id number]/MODL
[2018-04-29] MEDS ORDERED: DILTIAZEM 25 MG/5 ML VIAL IVP ONE ×2 (16:22→16:30)
[2018-04-29] MEDS ORDERED: DILTIAZEM 125 MG in D5W 125 ML IV SCH (17:15)
[2018-04-29] MEDS: METOPROLOL TARTRATE 25 MG TAB PO SCH (17:23)
--- NOTE | 2018-04-29 18:32 | GCON ---
CARDIOLOGY CONSULTATION. DATE OF CONSULTATION: 04/29/2018 REQUESTING PHYSICIAN: Dr. Sundeep Yeh. REASON FOR CONSULTATION: Paroxysmal atrial fibrillation and cardiomyopathy. HISTORY: This is a 72-year-old male with a history of paroxysmal atrial fibrillation and prior like stroke. He presented to the emergency room yesterday with complaints of a subjective feve r, productive cough, and rapidly escalating shortness of breath for the preceding 24-48 hours. In e emergency room, he was profoundly dyspneic and tachypneic. Treatment was initiated with bronchodil ators and he was placed on BiPAP. However, it appeared that he was in imminent danger of respiratory failure secondary to his work of breathing. Therefore, he was semi urgently intubated. Over night, his troponin levels have come back at 1.66, 1.64, and 1.160. His BNP is significantly elevated at 1 9,000. A stat echocardiogram was obtained in the emergency room and it demonstrated mild left ventri cular dilatation. His ejection fraction was approximately 30% with global hypokinesis. He had willy l-appearing valvular structures, as well as mild MR and minimal TR. PA systolic pressures could not be estimated. His chest x-ray was not suggestive of pulmonary edema. He has been treated empiricall y with corticosteroid and azithromycin. His respiratory status has improved overnight and he is curr ently breathing on a T-piece with a potential plan for extubation today. PAST CARDIAC HISTORY AND TESTING: The patient presented in November of 2015 with a right middle cerebral artery territory CVA. He was also found to have intermittent atrial fibrillation. He was started on systemic anticoagulation and low-dose metoprolol. Echocardiography at that time demonstrated normal left ventricular systolic function. He has not had an ischemic assessment. He has no history of hy pertension, hyperlipidemia, or type 2 diabetes. In review of the office records, metoprolol appears on his medication list as recently as 6 months ago. However, it was not on his medication list at [facility] time of an office visit with Dr. Butts from our practice in January of this year. He has not had any a ssessment for coronary artery disease. PAST MEDICAL HISTORY: In addition to his paroxysmal atrial fibrillation and prior CVA, his past medi cristino history includes pseudogout, DVT, cellulitis. MEDICATIONS: His only home medications are Eliquis and tamsulosin. ALLERGIES: No known drug allergies. FAMILY HISTORY: Noncontributory. SOCIAL HISTORY: Unobtainable at this time. His hospital demographics list him as single and retired . REVIEW OF SYSTEMS: Unobtainable at this time. PHYSICAL EXAM: VITAL SIGNS: Heart rate in the 70s with sinus rhythm on the monitor. Blood pressure 111/86. GENERAL: This is a 72-year-old adult male who is currently intubated. However, his sedati on has been stopped and he is responding appropriately. HEAD AND NECK: No scleral icterus. Mucous membranes moist. Carotid pulses 2+ without bruits. CHEST: Lung sousa clear anteriorly. No wheeze s. CARDIAC: Regular rate and rhythm with a normal S1 and S2. No murmur or gallop. ABDOMEN: Soft, nontender, nondistended, with normal bowel sounds. EXTREMITIES: 2+ pulses and no peripheral edema. ECG: His admission ECG demonstrated normal sinus rhythm with frequent PACs in a pattern of supra morris tricular bigeminy. Heart rate 61 beats per minute, no Q-waves or conduction system disturbances. No ischemic changes. LABORATORY STUDIES: Serial troponins as referenced in the history of present illness. Sodium 134, p otassium 3.9, BUN and creatinine 17 and 0.7. His CBC demonstrates a white blood cell count of 7.01 w ith hemoglobin and hematocrit of 12.6 and 36.4. Platelet count is 172,000. IMPRESSION: This is a 72-year-old male who has a history of paroxysmal atrial fibrillation. A descr iption of his history in the outpatient charting system, it sounds as if he only infrequently experie nces brief episodes of rapid and irregular heart rate. He is currently in sinus rhythm. He presente d with acute respiratory decompensation. His chest x-ray did not suggest overwhelming CHF/pulmonary edema. However, his BNP is significantly elevated. His echocardiogram demonstrates a new finding of moderately to severely decreased left ventricular systolic function. His troponin levels are mildly elevated with a relatively flat pattern suggestive of myocardial oxygen supply/demand mismatch. He has a relatively low risk profile for ischemic heart disease. He does not demonstrate any ischemic E CG changes. The etiology of his cardiomyopathy is uncertain at this point in time. He could have ex perienced a viral cardiomyopathy. It does not sound like he has had a significant burden of atrial f ibrillation/rapid ventricular response sufficient to produce a tachycardia mediated cardiomyopathy. He still needs to be evaluated for coronary disease. RECOMMENDATIONS: Continued supportive care for his respiratory failure. Once he is extubated, he sh ould be restarted on beta che therapy and an ROWDY inhibitor or angiotensin receptor che should be added. As his clinical status improves, consideration will be given to cardiac catheterization p rior to discharge. /[id number]/MODL
[2018-04-29] MEDS: TAMSULOSIN HCL 0.4 MG CAP PO SCH (20:01)
[2018-04-30] MEDS: methylPREDNISolone SOD SUCC 125 MG/2 ML VIAL IVP SCH ×2 (00:48→06:09)
[2018-04-30] MEDS: ASPIRIN 325 MG TAB TUBE SCH (08:22)
[2018-04-30] MEDS: ATORVASTATIN CALCIUM 40 MG TAB TUBE SCH (08:22)
[2018-04-30] MEDS: METOPROLOL TARTRATE 25 MG TAB PO SCH (08:22)
[2018-04-30] MEDS: APIXABAN 5 MG TAB TUBE SCH ×2 (08:22→20:06)
--- NOTE | 2018-04-30 12:14 | CPEKG ---
Test Reason : OPEN Blood Pressure : / mmHG Vent. Rate : 094 BPM Atrial Rate : 093 BPM P-R Int : 168 ms QRS Dur : 090 ms QT Int : 382 ms P-R-T Axes : 070 010 058 degrees QTc Int : 478 ms Sinus rhythm Atrial premature complexes Abnormal R-wave progression, early transition Minimal ST elevation, inferior leads Borderline prolonged QT interval Confirmed by Freddie Sims ([id number]) on 04/30/2018 12:13:47 PM Referred By: Confirmed By:Freddie Sims
--- NOTE | 2018-04-30 13:32 | HOSPPROG ---
Hospitalist Progress Note Assessment/Plan: 72 yo M a/w AHRF, new systolic chf and rhinovirus infection AHRF: cxr underwhelming in terms of cause no focal infiltrate, significant pulm edema PE considered, anticoag noted suspect viral pneumonitis continue steroids at lower dose now extubated w no 02 requirement AF: had rapid AF overnight responded to dilt X 1 plus restart of BB sCHF: new decrement in EF not tachy on presentation consider viral cardiomyopathy cardiology to cath vs stress in AM change BB to carvedilol ?CAP: reasonable to treat as atypical pneumonia sepsis: not AF: rate controlled on eliquis dispo: to pcu Subjective: extubated yesterday. case d/w justin del valle and jac Objective: Vital Signs Temp Pulse Resp BP Pulse Ox 37.2 C 76 19 121/69 H 94 04/30/18 07:53 04/30/18 11:44 04/30/18 11:44 04/30/18 11:44 04/30/18 12:01 Microbiology 04/29/18 00:44 - Final Sputum, Induced/Suctioned Laboratory Results 04/29/18 05:25 04/29/18 05:25 04/29/18 04/30/18 05/01/18 05:59 05:59 05:59 Intake Total 1437 2005 Output Total 615 8985 50 Balance 822 -69 -50 - Physical Exam Constitutional: no apparent distress, appears nourished Eyes: PERRL, anicteric sclera Ears, Nose, Mouth, Throat: moist mucous membranes, hearing normal Cardiovascular: regular rate and rhythym, no murmur, rub, or gallop Respiratory: no respiratory distress, other (less rhonchi, good air movement, scattered wheeze) Gastrointestinal: normoactive bowel sounds, soft, non-tender abdomen Genitourinary: no bladder fullness, No means in urethra Skin: warm, normal color Musculoskeletal: full muscle strength, no muscle tenderness Neurologic: AAOx3, sensation intact bilaterally Psychiatric: No interacting appropriately ICD10 Worksheet Patient Problems: Problems Problem Status Onset Acute respiratory failure Acute Elevated troponin Acute Rapid atrial fibrillation Acute Elevated troponin I level Acute Fall Acute Ischemic stroke Acute Rhabdomyolysis Acute
--- NOTE | 2018-04-30 13:52 | PDINTPN ---
[employer] Progress Note Assessment/Plan: 72 M with known PAF admitted 04/28 with c/o severe sorethroat, SOB, low oxygen. He was initially evaluated in the ED and had significant wheezing and was treated with steroids and nebs along with abx, as well as Bipap, which he did not tolerate and did not reduce his WOB. He was subsequently intubated and an echo showed an EF of 30% without evidence of pulmonary hypertension. His tropnins were only weakly positive and normalized quickly, but his BNP was 19, 000. His WBC was elevated at 11 but his procalcitonin was only 0.4 (too vague to be useful). He remained on the vent overnight and was easily exytubated the next day. Respiratory cultures grew Rhinovirus. * Acute respiratory failure with hypoxia- The etiology is unclear though clearly his cardiac issues are significant. His CXR did not show significant pulmonary edema or PNA, however. He lacks a history of asthma or smoking, as well as known lung disease. There was an episode of afib with RVR in the ED which resolved rapidly as well. He is now on room air with a normal pulmonary exam. Its unclear what role his steroids have played, but would favor a fairly rapid taper to off. Reasonable to finish a 5-day course of azithromycin for potential atypical bronchitis, though his viral syndrome may be the ultimate culprit. * CHF- followed by cardiology and considering C. Viral CMP also in the differential * Afib- he has had few and self-limited episodes of RVR, much better after resuming metoprolol. * Hypoxia- 2/2 above and resolved. * Dispo: stable for dc from a pulmonary perspective; await cards recommendations today. Of note, the nursing staff has reported verbally abusive behavior with unrealistic expectations. i have discussed the plan with the patient on multiple occasions on each of the last two days, as well as in rounds both with the multi-disciplinary team and with his small animal caretaker. I assured all parties that an efficient, safe, and appropriate plan would be undertaken as soon as possible, but that there are many variables to consider. 04/30/18 13:52 Subjective: Anxious to go home. Denies CP, SOB, palpitations, syncope, cough, sore throat Objective: Vital Signs Temp Pulse Resp BP Pulse Ox 37.2 C 76 19 121/69 H 94 04/30/18 07:53 04/30/18 11:44 04/30/18 11:44 04/30/18 11:44 04/30/18 12:01 Microbiology 04/29/18 00:44 - Final Sputum, Induced/Suctioned Laboratory Results 04/29/18 05:25 04/29/18 05:25 04/29/18 04/30/18 05/01/18 05:59 05:59 05:59 Intake Total 9948 2005 Output Total 299 8439 50 Balance 822 -69 -50 Physical Exam - Physical Exam General Appearance: alert, no apparent distress EENT: PERRL/EOMI Neck: supple Respiratory: lungs clear, normal breath sounds, No respiratory distress, No accessory muscle use, No rales, No rhonchi, No stridor, No wheezing Cardiac/Chest: regular rate, rhythm, No edema Abdomen: non-tender, soft, No distended Skin: normal color, warm/dry, No cyanosis Lymphatic: no adenopathy Extremities: No pedal edema Neuro/Psych: alert, normal mood/affect, oriented x 3, other (suboptimal disease insight) ICD10 Worksheet Patient Problems: Problems Problem Status Onset Acute respiratory failure Acute Elevated troponin Acute Rapid atrial fibrillation Acute Elevated troponin I level Acute Fall Acute Ischemic stroke Acute Rhabdomyolysis Acute
[2018-04-30] MEDS: CEPACOL LOZENGE PO PRN ×2 (15:59→17:57)
[2018-04-30] MEDS: CARVEDILOL 6.25 MG TAB PO SCH (17:51)
[2018-04-30] MEDS: AZITHROMYCIN 250 MG TAB PO SCH (20:06)
[2018-04-30] MEDS: TAMSULOSIN HCL 0.4 MG CAP PO SCH (20:06)
--- NOTE | 2018-04-30 22:42 | PDCARPN ---
Cardiology Progress Note Assessment/Plan: Late entry: patient seen at approximately 1700 today. Cardiomyopathy: His echocardiogram demonstrates an LVEF of 30-35% with global hypokinesis. Previous echocardiograms in 2016 demonstrated normal left ventricular systolic function. No prior history of CAD. Denies symptoms suggestive angina. Has a history of paroxysmal atrial fibrillation. However, his clinical history is not suggestive of a significant A-fib burden/RVR that would be indicative of a tachycardia-mediated cardiomyopathy. Antecedent symptoms of subjective fever/sore throat/worsening respiratory status are potentially suggestive of an acute viral illness with possible cardiac involvement. Has not had an evaluation for ischemic heart disease. - In light of the degree of his left ventricular systolic dysfunction, CAD he needs to be absolutely excluded. Will plan for cardiac catheterization tomorrow. Paroxysmal Atrial Fibrillation: Currently in sinus rhythm. First identified in 2016 in conjunction with a CVA. Has been on systemic anticoagulation for stroke prophylaxis. He does not think he has had any significant atrial fibrillation episodes for at least 12 months. Medical records indicate that he was previously on beta che therapy with metoprolol. However, it fell off of his medication list sometime in the first half of this year. No specific discussion about cessation of beta che therapy identified in the patient's outpatient medical record. Since he presented with acute respiratory distress which reportedly included a component of wheezing/reactive airway disease, will defer beta che therapy for now. If he has significant recurrent issues of atrial fibrillation, consideration will be given to amiodarone. 04/30/18 22:43 Subjective: No complaints. Objective: Vital Signs (8 Hrs) Temp Pulse Resp BP Pulse Ox 04/30/18 19:44 37.0 C 69 17 125/82 H 94 04/30/18 17:51 81 140/83 H 04/30/18 17:29 36.9 C 81 27 H 140/83 H 96 04/30/18 16:00 36.6 C 81 18 124/65 H 97 Intake/Output (24 Hrs) 04/29/18 04/30/18 05/01/18 05:59 05:59 05:59 Intake Total 1437 2006 Output Total 615 2075 200 Balance 822 -69 -200 Intake: Oral (ml) 1300 IV Intake (ml) 349 706 IV Infused (ml) 1088 Propofol/Emulsion 100 ml 26 @ Titrate IV CONT [facility] Rx# :[id number] fentaNYL/NACL 100 ml @ 22 Per Protocol IV CONT [facility] Rx#:[id number] Output: Urine (ml) 615 2075 200 Catheter 575 2075 50 Toilet 150 Other: Weight 79.3 kg 78.8 kg Number of Voids Toilet 1 Bladder Scan Volume (ml) Toilet 78 Result Diagrams: 04/29/18 05:25 04/29/18 05:25 Cardiac Labs: Cardiac Lab Results (72 Hrs) 04/29/18 04/29/18 05:25 00:35 Troponin I 1.160 H 1.640 H ICD10 Worksheet Patient Problems: Problems Problem Status Onset Acute respiratory failure Acute Elevated troponin Acute Rapid atrial fibrillation Acute Elevated troponin I level Acute Fall Acute Ischemic stroke Acute Rhabdomyolysis Acute
[2018-05-01] MEDS ORDERED: FAMOTIDINE 20 MG TAB PO ONE ×2 (06:00→10:45)
[2018-05-01] MEDS ORDERED: diphenhydrAMINE 25 MG CAP PO ONE ×2 (06:00→10:45)
[2018-05-01] MEDS ORDERED: DIAZEPAM 5 MG TAB PO ONE ×2 (06:00→10:45)
[2018-05-01] MEDS ORDERED: ASPIRIN EC 325 MG TAB PO ONE ×2 (06:00→10:45)
[2018-05-01] MEDS: LISINOPRIL 5 MG TAB PO SCH (10:19)
[2018-05-01] MEDS: ATORVASTATIN CALCIUM 40 MG TAB TUBE SCH (10:20)
[2018-05-01] MEDS ORDERED: LIDOCAINE 1% 300 MG/30 ML SDV ONE (10:24)
[2018-05-01] MEDS ORDERED: MIDAZOLAM 2 MG/2 ML VIAL ONE ×2 (10:24)
[2018-05-01] MEDS ORDERED: fentaNYL 100 MCG/2 ML INJ ONE (10:24)
[2018-05-01] MEDS ORDERED: IOPAMIDOL (ISOVUE-370) 150 ML BTL IV ONE (10:25)
[2018-05-01] MEDS: ALBUTEROL 3 ML DEYVIAL IH PRN (10:38)
[2018-05-01] MEDS: CARVEDILOL 6.25 MG TAB PO SCH ×2 (10:49→20:37)
[2018-05-01] MEDS: ASPIRIN 325 MG TAB TUBE SCH (10:51)
--- NOTE | 2018-05-01 11:45 | PDHPUP ---
History & Physical Update H&P update statement: This history and physical update is based on an assessment of the patient which was completed after admission or registration (within 24 hours), but prior to the surgery/procedure. H&P update: H&P reviewed & patient examined, no change in patient's condition since H&P completed
--- NOTE | 2018-05-01 11:45 | PDPROPOC ---
Sedation Plan of Care Sedation Plan of Care: vital signs stable, mental status noted, patient educated of risks, benefits, alternatives, patient can tolerate sedation ASA Classification: ASA 2 Planned drugs: fentanyl, midazolam Mallampati Score: Class 2 Mallampati Reference Image: Patient passed 3-3-2 rule?: Yes
[2018-05-01] MEDS ORDERED: BIVALIRUDIN 250 MG/5 ML VIAL IV ONE (12:45)
[2018-05-01] MEDS ORDERED: NITROGLYCERIN 0.4 MG BTL SL PRN (13:19)
[2018-05-01] MEDS ORDERED: HYDROCODONE/APAP 5/325 TAB PO PRN (13:19)
[2018-05-01] MEDS ORDERED: ATROPINE SULFATE 1 MG/10 ML SYR IVP PRN (13:19)
--- NOTE | 2018-05-01 13:36 | PDDXCAT ---
Diagnostic Cath Note - . Date: 05/01/18 Brine Tank Tender: Chase Indication: other (Acute systolic CHF, cardiomyopathy with severely reduced LV systolic function, and elevated troponin.) - Procedure Access: right groin Procedure: left heart catheterization, coronary angiography, left ventriculogram , right heart catheterization, other (attempted PCI of the LAD) - Materials Left Heart Cath size: 6F Left Heart Cath materials: standard multipack (JL4, JR4, pigtail) Right Heart Cath size: 7F Right Heart Cath materials: PWP catheter - Findings-Left Heart Catheterization LM: Normal. LAD: Mid-LAD 100% with [id number] and [id number] collaterals. LCX: Minimal irregularites. RCA: Minimal irregularities. EDP: 14 mmHg LVEF: 20-25% Wall motion: Global hypokinesis. - Findings-Right Heart Catheterization RA: 6 mmHg RV: 32/6 mmHg PA: 32/17/22 mmHg O2 sat 51.7% PAOP: 14 mmHg AO: 114/66/86 mmHg O2 sat 86.4% CO: 3.51 L/min CI: 1.87 L/min/sq mtr Complications: None Estimated blood loss: <50ml Closure method: Angioseal Assessment: 1) Chronic total occlusion of the mid-LAD. The remainder of the patient's coronary system is free of any significant disease. 2) Unsuccessful attempt at PCI of the LAD. 3) Ischemic cardiomyopathy with severely reduced left ventricular systolic function. 4) Normal right heart pressures. Plan: Cardiothoracic surgery consultation to consider CABG. Intervention: Based on the patient's clinical history and diagnostic angiography, the decision was made to attempt percutaneous coronary intervention of the left anterior descending. The patient received intravenous Angiomax. A 6 Cam[place]onian CLS 3.5 guide catheter was advanced to the left main. An Intuition guidewire was advanced to the level of the total occlusion in the mid-LAD. The guidewire repeatedly entered the second digonal branch but would not cross the chronic total occlusion. The Intuition wire was left in the second diagonal branch and a Carton Stapler 50 guidewire was then advanced to the chronic total occlusion. It too repeatedly entered the second diagonal branch. Therefore, the plan was to take a 1.5 x 8 mm Emer[address] balloon and place it in the second diagonal branch to occupy as much of the ostial lumen as possible and to serve as a surface to "bank" the Carton Stapler 50 in the direction of the chronic total occlusion. However, the balloon could not be advanced past an area of high-grade disease immediately proximal to the second diagonal. At this point further, attempts were abandoned. Patient Problems: Problems Problem Status Onset Acute respiratory failure Acute Elevated troponin Acute Rapid atrial fibrillation Acute Elevated troponin I level Acute Fall Acute Ischemic stroke Acute Rhabdomyolysis Acute
--- NOTE | 2018-05-01 14:47 | PDCARPN ---
Cardiology Progress Note Assessment/Plan: Coronary Artery Disease: Cardiac catheterization today demonstrated a chronic total occlusion the mid-LAD. The remainder of his coronary circulation is essentially normal in appearance. PCI of the chronic total occlusion in the LAD was attempted but it could not be crossed with a guidewire. - CT surgery consultation to consider CABG; Dr. Andersen notified. Cardiomyopathy/CHF: An echocardiogram from the day of admission demonstrates an LVEF of 30-35% with global hypokinesis. Previous echocardiograms in 2016 demonstrated normal left ventricular systolic function. His ejection fraction looks worse on LV-gram; 20-25%. However, there is movement in the LAD territory suggesting that it is viable. He appears to be relatively well volume- compensated and his height heart pressures on catheterization were normal. - Repeat BNP in a.m. - Continue carvedilol. - Lisinopril added. - Add spironolactone later. Paroxysmal Atrial Fibrillation: Currently in sinus rhythm. First identified in 2016 in conjunction with a CVA. Has been on systemic anticoagulation for stroke prophylaxis. He does not think he has had any significant atrial fibrillation episodes for at least 12 months. - Hold Eliquis in anticipation of CABG early next week. Secondary Prevention: Atorvastatin 40 mg QD was started empirically when his cardiomyopathy and elevated troponin were identified. Lipid panel demonstrates a total cholesterol of 156 with HDL 93(!), LDL 55, and triglycerides 42. - Will decrease atorvastatin to 10 mg QD. 05/01/18 15:00 Objective: Vital Signs (8 Hrs) Pulse Resp BP Pulse Ox 05/01/18 08:14 72 16 139/73 H 90 L 05/01/18 07:15 40 L Intake/Output (24 Hrs) 04/30/18 05/01/18 05/02/18 05:59 05:59 05:59 Intake Total 2005 400 Output Total 2074 200 50 Balance -69 200 -50 Intake: Oral (ml) 1300 400 IV Intake (ml) 706 Output: Urine (ml) 2074 200 50 Catheter 5 50 Toilet 150 Urinal 50 Other: Weight 76.566 kg Number of Voids Toilet 1 Number of Stools Toilet 1 Bladder Scan Volume (ml) Toilet 78 Result Diagrams: 04/29/18 05:25 04/29/18 05:25 Cardiac Labs: Cardiac Lab Results (72 Hrs) 04/29/18 04/29/18 05:25 00:35 Troponin I 1.160 H 1.640 H - Physical Exam Constitutional: no apparent distress Eyes: anicteric sclera Ears, Nose, Mouth, Throat: moist mucous membranes Cardiovascular: regular rate and rhythm, no murmurs, no gallops Respiratory: clear to auscultate bilat Gastrointestinal: normoactive bowel sounds, no tenderness, no masses Skin: no edema Neurologic: AAOx3 Psychiatric: not anxious ICD10 Worksheet Patient Problems: Problems Problem Status Onset Ischemic stroke Acute Rhabdomyolysis Acute Fall Acute Elevated troponin I level Acute Elevated troponin Acute Rapid atrial fibrillation Acute Acute respiratory failure Acute
--- NOTE | 2018-05-01 16:56 | HOSPPROG ---
Hospitalist Progress Note Assessment/Plan: # AHRF - much better; likely viral + cardiac - was transiently intubated, now extubated # viral pneumonitis # CAD - cath with MRI CT TECH of LAD - CABG recommended - cont asa/BB per cards # sCHF - suspect ischemic given cath findings - cont coreg - lisino started # a-fib - responded to dilt IV - cont bb, eliquis on hold for cabg # ?CAP - azith x 1 more day then dc Subjective: s/p cath; many questions regarding next steps Objective: Vital Signs Temp Pulse Resp BP Pulse Ox 36.5 C 72 16 139/73 H 90 L 05/01/18 04:00 05/01/18 08:14 05/01/18 08:14 05/01/18 08:14 05/01/18 08:14 Microbiology 04/29/18 00:44 - Final Sputum, Induced/Suctioned Sputum Culture - Final Laboratory Results 04/29/18 05:25 04/29/18 05:25 04/30/18 05/01/18 05/02/18 05:59 05:59 05:59 Intake Total 2005 400 350 Output Total 2074 200 250 Balance -69 200 100 chart reviewed cxr personally reviewed - Physical Exam Constitutional: no apparent distress, appears nourished Cardiovascular: regular rate and rhythym, no murmur, rub, or gallop Respiratory: no respiratory distress, no rales or rhonchi, clear to auscultation Gastrointestinal: soft, non-tender abdomen, no palpable masses, No rebound, No distension ICD10 Worksheet Patient Problems: Problems Problem Status Onset Ischemic stroke Acute Rhabdomyolysis Acute Fall Acute Elevated troponin I level Acute Elevated troponin Acute Rapid atrial fibrillation Acute Acute respiratory failure Acute
[2018-05-01] MEDS: APIXABAN 5 MG TAB TUBE SCH (18:55)
[2018-05-01] MEDS: TAMSULOSIN HCL 0.4 MG CAP PO SCH (20:04)
[2018-05-01] MEDS: AZITHROMYCIN 250 MG TAB PO SCH (20:04)
[2018-05-02] MEDS: ATORVASTATIN CALCIUM 10 MG TAB PO SCH (09:39)
[2018-05-02] MEDS: CARVEDILOL 6.25 MG TAB PO SCH ×2 (09:39→18:09)
[2018-05-02] MEDS: LISINOPRIL 5 MG TAB PO SCH (09:39)
[2018-05-02] MEDS: FUROSEMIDE 40 MG/4 ML VIAL IVP SCH ×2 (09:39→15:06)
--- NOTE | 2018-05-02 09:39 | PDCARPN ---
Cardiology Progress Note Chief Complaint: Patient reports shortness breath with fatigue. Assessment/Plan: Assessment: 72-year-old male with significant past history that includes paroxysmal AFib, CVA, DVT. Admitted 04/28/2018 for increased shortness of breath 12:48 p.m. Before admission. Found to be profound isthmic intact P neck, transient intubation was done. Significantly elevated BNP on admission of 19,000, with elevated troponin, elevated to 1.640. Echocardiogram done April 28 showing mildly dilated LV global hypokinesis moderate to severely reduced systolic function, EF 30%, normal RV size and function. Extubated 04/30/2018. Patient reporting no history of chest pressure pain. Cardiac catheterization 2017 showing 100% total mid LAD [id number] affect the her and right to left collaterals. Minimal disease in circumflex and RCA, EF worsened at 20-25% with global hypokinesis. EDP 14 mm Hg. Right heart catheterization showing PCWP 14 mm Hg, PA32/17. CO 3.5, CI 1.87. Attempted opening of total occlusion of LAD unsuccessful. Today: Patient reports no chest pressure or pain. Continues cardiac monitoring showing sinus rhythm, occasional PAC, no malignant arrhythmias or pauses. BNP elevated at 5710, improvement since admission. He denies of any chest pressure pain. Reports dyspnea on exertion, and fatigue symptoms. Mild JVD on physical examination, SpO2 low 90s on room air. CT surgery is seen patient. Plan: 1. CAD: Total occluded LAD with collateral circulation, attempted PCI yesterday , unsuccessful. Patient reports no chest pressure or pain. CT surgery, Dr. Andersen, saw patient today, recommend holding all until respiratory status is improved from CAP. Discussed with Dr. Stone in agreement. Medical manage for time being. Continue on carvedilol. Anti-platelet therapy of aspirin. 2.SCHF/ cardiomyopathy: EF 20-25% off cardiac catheterization LV-gram. EDP and PCWP 14 mmHg yesterday. He global hypokinesis, but movement noted in anterior section suggesting viability of totalled LAD. Appears to be mildly fluid overloaded today. BMP improved, continues to be elevated. Will give IV Lasix 40 mg p.o. Twice daily today. BMP with the today's labs. Continue on carvedilol. Continue on lisinopril. Consideration of starting on Aldactone as an outpatient. 3. Paroxysmal atrial fibrillation: Currently in sinus rhythm. Eliquis has been held, for potential surgery. Since decided to hold off surgery until improvement in respiratory status, potentially can be seen as an outpatient. Will resume anticoagulation of Eliquis. 4. Hyperlipidemia: Secondary risk prevention on atorvastatin. Recent decreased dose to 10 mg p.o. Q.day. Will need a repeated fasting lipid and liver panel in approximately 8 weeks. 5. Carotid artery disease: Ultrasound showing 50% stenosis on left. Anti- platelet therapy as mentioned above. Secondary risk prevention with atorvastatin. 6. CAP: Continue antibiotic therapy as prescribed by hospital medicine. Continue pulmonary toilet. 05/02/18 09:36 Subjective: Patient reports no chest pressure or pain. Denies of any palpitations. Reports mild orthopnea, denies of any palpitations, lightheadedness, near- syncope or syncopal events. Reviewed/Discussed With: other (Dr Andersen, Dr Stone and Dr Hayes) Time Spent with Patient: greater than 25 minutes Time Spent with Patient: Greater than 25 minutes spent on this patients care, greater than 50% of time spent counseling, educating, and coordinating care regarding the above mentioned plan. Objective: Vital Signs (8 Hrs) Temp Pulse Resp BP Pulse Ox 05/02/18 07:34 36.7 C 59 L 20 120/70 91 L 05/02/18 03:17 36.6 C 57 L 12 106/64 90 L Intake/Output (24 Hrs) 05/01/18 05/02/18 05/03/18 05:59 05:59 05:59 Intake Total 400 790 Output Total 200 525 Balance 200 265 Intake: Oral (ml) 400 540 IV Intake (ml) 250 Output: Urine (ml) 200 525 Catheter 50 Toilet 150 Urinal 525 Other: Weight 76.566 kg 76.3 kg Intake Quantity Yes Sufficient Number of Voids Toilet 1 1 Urinal 1 Number of Stools Toilet 1 Bladder Scan Volume (ml) Toilet 78 Result Diagrams: 04/29/18 05:25 04/29/18 05:25 - Physical Exam Constitutional: no apparent distress Ears, Nose, Mouth, Throat: moist mucous membranes Cardiovascular: regular rate and rhythm, jugular vein distention (5-6 cm above sternal notch), pulses symmetric bilat, No carotid bruit Peripheral Pulses: 1+: dorsalis-pedis (R), dorsalis-pedis (L), 2+: carotid (R), carotid (L) Respiratory: expiratory wheeze, other (Mild rales noted in bases, expiratory wheezing. No accessory muscle use, no intercostal muscle retraction noted.) Gastrointestinal: normoactive bowel sounds Skin: no rashes, warm, No no edema (Trace pedal edema bilateral) Neurologic: AAOx3 Psychiatric: cooperative, following commands ICD10 Worksheet Patient Problems: Problems Problem Status Onset Ischemic stroke Acute Rhabdomyolysis Acute Fall Acute Elevated troponin I level Acute Elevated troponin Acute Rapid atrial fibrillation Acute Acute respiratory failure Acute
[2018-05-02] MEDS ORDERED: POTASSIUM CL 20 MEQ TAB PO ONE (10:35)
[2018-05-02] MEDS: ASPIRIN 325 MG TAB PO SCH (11:30)
[2018-05-02] MEDS: ASPIRIN 325 MG TAB TUBE SCH (11:31)
--- NOTE | 2018-05-02 12:09 | HOSPPROG ---
Hospitalist Progress Note Assessment/Plan: # AHRF - much better; likely viral + cardiac - was transiently intubated, now extubated # viral pneumonitis # CAD - cath with CHIEF STRATEGY OFFICER of LAD - CABG recommended - cont asa/BB per cards # sCHF - suspect ischemic given cath findings - cont coreg - lisino started # a-fib - responded to dilt IV - cont bb, eliquis on hold for cabg # ?CAP - s/p azith for 5 days Subjective: eating lunch; urinating alot; ongoing cough Objective: Vital Signs Temp Pulse Resp BP Pulse Ox 36.4 C 89 20 101/47 L 91 L 05/02/18 11:16 05/02/18 11:16 05/02/18 11:16 05/02/18 11:16 05/02/18 11:16 Microbiology 04/29/18 00:44 - Final Sputum, Induced/Suctioned Sputum Culture - Final Laboratory Results 04/29/18 05:25 05/02/18 03:16 05/01/18 05/02/18 05/03/18 05:59 05:59 05:59 Intake Total 400 790 300 Output Total 200 525 650 Balance 200 265 -350 carotid US reviewed tele personally reviewed - Physical Exam Constitutional: no apparent distress, appears nourished Cardiovascular: regular rate and rhythym, no murmur, rub, or gallop Respiratory: no respiratory distress, no rales or rhonchi Gastrointestinal: soft, non-tender abdomen, No guarding, No rebound, No distension ICD10 Worksheet Patient Problems: Problems Problem Status Onset Ischemic stroke Acute Rhabdomyolysis Acute Fall Acute Elevated troponin I level Acute Elevated troponin Acute Rapid atrial fibrillation Acute Acute respiratory failure Acute
[2018-05-02] MEDS: CEPACOL LOZENGE PO PRN (17:02)
[2018-05-02] MEDS: APIXABAN 5 MG TAB PO SCH (19:43)
[2018-05-02] MEDS: TAMSULOSIN HCL 0.4 MG CAP PO SCH (19:43)
--- NOTE | 2018-05-03 09:01 | ASMTCMCOM ---
CM Note CM Note Notes: Chart reviewed. Cardiac cath demonstrated occlusion to LAD that can't be stented. CVS surgery consulted. Patient likely to undergo OHS when respiratory status improves. CM to follow for needs. Plan: TBD Date Signed: 05/03/2018 09:00 AM Electronically Signed By:Lainey Savage RN
[2018-05-03] MEDS: CEPACOL LOZENGE PO PRN (09:03)
[2018-05-03] MEDS: CARVEDILOL 6.25 MG TAB PO SCH ×2 (09:04→17:13)
[2018-05-03] MEDS: APIXABAN 5 MG TAB PO SCH ×2 (09:04→23:13)
[2018-05-03] MEDS: ASPIRIN 325 MG TAB PO SCH (09:07)
[2018-05-03] MEDS: ATORVASTATIN CALCIUM 10 MG TAB PO SCH (09:07)
[2018-05-03] MEDS: LISINOPRIL 5 MG TAB PO SCH (09:07)
--- NOTE | 2018-05-03 10:23 | PDCARPN ---
Cardiology Progress Note Assessment/Plan: Assessment/plan: 72-year-old male with the past history of paroxysmal atrial fibrillation and stroke. He was admitted on April 28 with acute hypoxic respiratory failure, likely community acquired pneumonia. He did require intubation and is now extubated. He was found to have a cardiomyopathy on echo with an ejection fraction of 30%. Troponin peaked at 1.6. Angiogram on May 01 showed 100% mid-LAD occlusion with collateralization. PCI was not successful. He has been seen by cardiac surgery. He also has right carotid artery occlusion. 1. Hypoxic respiratory failure/likely pneumonia: Improving but still with significant productive cough. Per Hospital Medicine. 2. Cardiomyopathy: On appropriate medical therapy. Appears euvolemic. The etiology was cardiomyopathy is likely a combination of his coronary disease and viral and or stress cardiomyopathy. 3. Coronary disease: Total occlusion of the mid LAD not amenable to PCI. He has been seen by cardiac surgery. Plan is for single-vessel bypass once his pulmonary status is stable. 4. Paroxysmal atrial fibrillation: He is on Eliquis. This will need to be held prior to cardiac surgery. This should be interrupted as little as possible given his history of presumably thromboembolic stroke in 2016. 5. Carotid disease: On statin. Chronically occluded right ICA, moderate left ICA stenosis. 6. Dyslipidemia: LDL cholesterol 55. Continue statin. 05/03/18 10:58 Subjective: Feels better. Less dyspneic. Still with productive cough. Denies angina. Eating well. Having bowel movements. Objective: Vital Signs (8 Hrs) Temp Pulse Resp BP Pulse Ox 05/03/18 09:04 90 109/59 L 05/03/18 08:00 36.6 C 90 22 H 109/59 L 90 L 05/03/18 03:23 36.6 C 57 L 19 116/56 L 91 L Intake/Output (24 Hrs) 05/02/18 05/03/18 05/04/18 05:59 05:59 05:59 Intake Total 790 650 Output Total 525 1150 Balance 265 -500 Intake: Oral (ml) 540 650 IV Intake (ml) 250 Output: Urine (ml) 525 1150 Urinal 525 1150 Other: Weight 76.3 kg 75.6 kg Intake Quantity Yes Sufficient Number of Voids Toilet 1 1 Urinal 1 1 Number of Stools Toilet 1 1 Urinal 2 No acute distress. Regular rate and rhythm without murmur or gallop Rales at both lung bases. No wheezes. Occasional scattered rhonchi. No lower extremity edema Result Diagrams: 04/29/18 05:25 05/03/18 03:22 Telemetry: NSR, PACs, PAF ICD10 Worksheet Patient Problems: Problems Problem Status Onset Ischemic stroke Acute Rhabdomyolysis Acute Fall Acute Elevated troponin I level Acute Elevated troponin Acute Rapid atrial fibrillation Acute Acute respiratory failure Acute
--- NOTE | 2018-05-03 12:35 | HOSPPROG ---
Hospitalist Progress Note Assessment/Plan: # AHRF - much better; likely viral + cardiac - was transiently intubated, now extubated - off O2 - recheck CXR today - start mucinex - consider pred - would discuss with Dr Nathaly lara # viral pneumonitis # CAD - cath with SEWAGE RETICULATION DRAFTING OFFICER of LAD - CABG recommended - cont asa/BB per cards - needs statin # R ICA occlusion - needs statin # sCHF - suspect ischemic given cath findings - cont coreg - lisino started # a-fib - responded to dilt IV - cont bb, eliquis (need to hold prior to cabg) Subjective: coughing, able to produce sputum Objective: Vital Signs Temp Pulse Resp BP Pulse Ox 36.6 C 90 22 H 109/59 L 90 L 05/03/18 08:00 05/03/18 09:04 05/03/18 08:00 05/03/18 09:04 05/03/18 08:00 Laboratory Results 04/29/18 05:25 05/03/18 03:22 05/02/18 05/03/18 05/04/18 05:59 05:59 05:59 Intake Total 790 650 Output Total 525 1150 Balance 265 -500 - Physical Exam Constitutional: no apparent distress, appears nourished Cardiovascular: regular rate and rhythym, no murmur, rub, or gallop Respiratory: no respiratory distress, other (R sided wheezes and rhonchi), No inspiratory crackles Gastrointestinal: soft, non-tender abdomen, No ascites, No guarding, No rebound ICD10 Worksheet Patient Problems: Problems Problem Status Onset Ischemic stroke Acute Rhabdomyolysis Acute Fall Acute Elevated troponin I level Acute Elevated troponin Acute Rapid atrial fibrillation Acute Acute respiratory failure Acute
[2018-05-03] MEDS: guaiFENesin 600 MG TAB.ER PO SCH ×2 (14:33→23:13)
[2018-05-03] MEDS: ALBUTEROL 3 ML DEYVIAL IH PRN (15:50)
[2018-05-03] MEDS: TAMSULOSIN HCL 0.4 MG CAP PO SCH (23:13)
[2018-05-04 04:35] LABS: PLATELET COUNT 256 10^3/uL (150-400)
[2018-05-04] MEDS: CARVEDILOL 6.25 MG TAB PO SCH (07:55)
[2018-05-04] MEDS: LISINOPRIL 5 MG TAB PO SCH (07:55)
[2018-05-04] MEDS: ATORVASTATIN CALCIUM 10 MG TAB PO SCH (07:55)
[2018-05-04] MEDS: APIXABAN 5 MG TAB PO SCH (07:55)
[2018-05-04] MEDS: ASPIRIN 325 MG TAB PO SCH (07:55)
[2018-05-04] MEDS: guaiFENesin 600 MG TAB.ER PO SCH (07:56)
[2018-05-04] MEDS ORDERED: NITROGLYCERIN 0.4 MG BTL SL PRN (09:40)
[2018-05-04] MEDS ORDERED: POTASSIUM CL 10 MEQ TAB PO SCH (09:45)
[2018-05-04] MEDS ORDERED: FUROSEMIDE 40 MG TAB PO SCH (09:45)
--- NOTE | 2018-05-04 09:48 | PDCARPN ---
Cardiology Progress Note Chief Complaint: Patient reports continued shortness of breath, but feels that it has improved. Assessment/Plan: Assessment: 72-year-old male with significant past history that includes paroxysmal AFib, CVA, DVT. Admitted 04/28/2018 for increased shortness of breath 12:48 p.m. Before admission. Found to be profound isthmic intact P neck, transient intubation was done. Significantly elevated BNP on admission of 19,000, with elevated troponin, elevated to 1.640. Echocardiogram done April 28 showing mildly dilated LV global hypokinesis moderate to severely reduced systolic function, EF 30%, normal RV size and function. Extubated 04/30/2018. Patient reporting no history of chest pressure pain. Cardiac catheterization 2017 showing 100% total mid LAD [id number] affect the her and right to left collaterals. Minimal disease in circumflex and RCA, EF worsened at 20-25% with global hypokinesis. EDP 14 mm Hg. Right heart catheterization showing PCWP 14 mm Hg, PA32/17. CO 3.5, CI 1.87. Attempted opening of total occlusion of LAD unsuccessful. 05/04/2018: Patient reports no chest pain. Feels his shortness of breath has improved. Continues cardiac monitoring showing sinus rhythm with no malignant arrhythmias or pauses. Plan: 1. CAD: Total occluded LAD with collateral circulation, attempted PCI yesterday , unsuccessful. Patient reports no chest pressure or pain. CT surgery, Dr. Andersen, had seen Friday with recommend holding all until respiratory status is improved from CAP. Discussed with Dr. Stone in agreement. Will continue medical management anti-platelet therapy of aspirin and carvedilol. Have discussed with the patient, will plan for him to have a follow-up visit early next week, with both Cardiology and CT surgery. 2.SCHF/ cardiomyopathy: EF 20-25% off cardiac catheterization LV-gram. EDP and PCWP 14 mmHg yesterday. He global hypokinesis, but movement noted in anterior section suggesting viability of totalled LAD. Appears fairly euvolemic today on physical examination. He has been started on beta-che and ROWDY-inhibitor. He did receive 2 doses of IV Lasix on Friday. No diuretic yesterday. I do think he will need a maintenance dose of diuretic, will place him on Lasix 40 mg p.o. Q.day. Will add potassium supplement with the addition of diuretic. Have discussed with the patient importance of monitoring his weight on a daily basis, he is to notify our office if he gains more than 2 lb in a day or 5 lb in a week. 3. Paroxysmal atrial fibrillation: Currently in sinus rhythm. Continue on carvedilol, resume Eliquis for full anticoagulation. 4. Hyperlipidemia: Secondary risk prevention on atorvastatin. Recent decreased dose to 10 mg p.o. Q.day. Will need a repeated fasting lipid and liver panel in approximately 8 weeks. 5. Carotid artery disease: Ultrasound showing 50% stenosis on left. Anti- platelet therapy as mentioned above. Secondary risk prevention with atorvastatin. 6. CAP: Continue antibiotic therapy as prescribed by hospital medicine. Continue pulmonary toilet. From cardiac standpoint, patient may discharged home, I will make sure that has a follow-up visit set up for next week with both Cardiology in CT surgery. 05/04/18 09:43 Subjective: He reports no chest pressure or pain. Feels his fatigue symptoms have mildly improved. Denies of any orthopnea, PND palpitations, lightheadedness near- syncope or syncopal events. Reviewed/Discussed With: hospitalist (Dr Amezquita), other (Dr Hayes and Dr Andersen) Objective: Vital Signs (8 Hrs) Temp Pulse Resp BP Pulse Ox 05/04/18 07:13 36.8 C 60 18 137/67 H 93 05/04/18 03:24 36.6 C 57 L 20 119/61 93 Intake/Output (24 Hrs) 05/03/18 05/04/18 05/05/18 05:59 05:59 05:59 Intake Total 650 1895 Output Total 1150 450 150 Balance -500 1445 -150 Intake: Oral (ml) 650 1895 Output: Urine (ml) 1150 450 150 Urinal 1150 450 150 Other: Weight 75.6 kg 76.2 kg Intake Quantity Yes Sufficient Number of Voids Toilet 1 1 Urinal 1 Number of Stools Toilet 1 Urinal 2 Result Diagrams: 05/04/18 03:32 05/04/18 03:32 - Physical Exam Constitutional: no apparent distress Ears, Nose, Mouth, Throat: moist mucous membranes Cardiovascular: regular rate and rhythm, jugular vein distention (To 5 cm above sternal notch), pulses symmetric bilat, No carotid bruit Peripheral Pulses: 1+: dorsalis-pedis (R), dorsalis-pedis (L), 2+: carotid (R), carotid (L) Respiratory: other (Lungs are clear but diminished in bases bilateral. No rhonchi, rales, or wheezing noted.) Gastrointestinal: normoactive bowel sounds Skin: no rashes, warm, No no edema (Trace pedal edema) Neurologic: AAOx3 Psychiatric: cooperative, interactive, following commands ICD10 Worksheet Patient Problems: Problems Problem Status Onset Ischemic stroke Acute Rhabdomyolysis Acute Fall Acute Elevated troponin I level Acute Elevated troponin Acute Rapid atrial fibrillation Acute Acute respiratory failure Acute
--- NOTE | 2018-05-04 10:08 | PDIAF ---
- Diagnosis Diagnosis: ID Code Status: Full Code - Medication Management Discharge Medications: Medications to Continue on Transfer Apixaban [Eliquis] 5 mg PO BID 04/28/18 [Last Taken 04/28/18 09:00] Tamsulosin HCl [Flomax 0.4 MG (*)] 0.4 mg PO HS 04/28/18 [Last Taken 04/27/18] Albuterol [Proventil Inhaler HFA (*)] 2 puffs IH Q4 #1 mdi 05/04/18 [Last Taken Unknown] Aspirin [Aspirin 325 mg (*)] 325 mg PO DAILY tab 05/04/18 [Last Taken Unknown] Atorvastatin Calcium [Lipitor 10 mg (*)] 10 mg PO DAILY #30 tab 05/04/18 [Last Taken Unknown] Carvedilol [Coreg (*)] 6.25 mg PO BIDMEAL #60 tab 05/04/18 [Last Taken Unknown] Furosemide [Lasix 40 MG (*)] 40 mg PO DAILY #30 tab 05/04/18 [Last Taken Unknown ] Lisinopril [Zestril 5 mg (*)] 5 mg PO DAILY #30 tab 05/04/18 [Last Taken Unknown ] Potassium Chloride 10 meq PO DAILY #30 tab.er.prt 05/04/18 [Last Taken Unknown] guaiFENesin [Mucinex 600 MG (*)] 1,200 mg PO BID tab.er 05/04/18 [Last Taken Unknown] Discharge Medications: Refer to the Discharge Home Medication list for PRN reason. - Orders Services needed: Home Care, Registered Nurse, Certified Teacher Drama Home Care Face to Face: I certify that this patient was under my care and that I had the required [id number] encounter meeting the encounter requirements on the discharge day. My findings support the fact that the patient is homebound as defined in Home Care Face to Face Continued: CMS Chapter 7 Medicare Benefits Manual 30.1.1 , The condition of the patient is such that there exists a normal inability to leave home and consequently, leaving home would require a considerable and taxing effort. Isolation Type: Droplet Isolation Diet Recommendation: no restrictions on diet - Follow Up Care Current Providers and Referrals: Yoni Lakhani MD [Primary Care Provider] - As per Instructions Javon Andersen DO [Doctor of Osteopathy] - Javon Stone MD [Medical Doctor] - (05/13/2018 at 2:00 pm)
--- NOTE | 2018-05-04 10:33 | ASDISCHSUM ---
Discharge Information Plan Status:Has needs-TBD Medically Cleared to Leave: Discharge Date: CM D/C Disposition:Home Health w Planned Readm iss ADT D/C Disposition:Home Health Service Projected Discharge Date:05/04/2018 11:00 AM Transportation at D/C:Other Discharge Delay Reason: Follow-Up Date:05/04/2018 11:00 AM Discharge Slot: Final Diagnosis: Placement Information Referral Type:*Home Health Care Services Referral ID:[id number] Provider Name: Address 1: Phone Number: Address 2: Fax Number: City: Selection Factors: State: Patient Contact Information Contact Name:CRYSTAL Relationship:Edel Address: Work Phone: City: [facility][1] Phone: [facility] Code: Email: Financial Information Financial Class:Medicare Advantage Plans Primary Plan Desc:[facility] [email or web address] Primary Plan Number:[id number] Secondary Plan Desc: Secondary Plan Number: Assessment Information LACE LACE Length of stay for Answers: 4-6 days current admission Acuity / Level of Answers: Yes Care: Did the patient have an inpatient admission? Comorbidities - select Answers: Cerebrovascular disease all that apply (CVA, TIA, aneurysms, vasc ular dementia) Previous myocardial infarction Other Notes: AFib; DVT # of Emergency department Answers: 1-2 visits in the last 6 months Score: 11 Date Signed: 05/04/2018 10:30 AM Electronically Signed By:ZEINAB Govea [facility] Initial CM Assessment Living Arrangements What is your living Answers: Alone arrangement? Who do you live with? Type Of Residence What kind of residence do Answers: House you live in? Discharge Plan Comments Coordination Status Comments Notes: Patient is a 72yo single male with acute respiratory failure secondary to acute reactive airway exacerbation. Patient was admitted for acute respiratory failure, possible pneumonia, acute reactive airway exacerbation, acute lactic acidosis, and atrial fibrillation. OT/PT have been ordered. Patient has a caregiver, Cordelia Ac. ([phone]) D/C plan TBD. CM will follow. Date Signed: 04/29/2018 12:25 PM Electronically Signed By:Gracy Mchugh LCSW [facility] CM Progress Note CM Note CM Note Notes: Chart reviewed. Cardiac cath demonstrated occlusion to LAD that can't be stented. CVS surgery consulted. Patient likely to undergo OHS when respiratory status improves. CM to follow for needs. Plan: TBD Date Signed: 05/03/2018 09:00 AM Electronically Signed By:Lainey Savage RN Intervention Information Intervention Type:*IM-Signed Date of Service:05/04/2018 10:05 AM Patient Type:Inpatient Staff Member:Polina Vazquez Hours: Discipline: Severity: Comment:
--- NOTE | 2018-05-04 11:09 | GDS ---
ALL DIAGNOSES: 1. Acute [id number]-gkcjncxnr myocardial infarction. 2. Respiratory failure, requiring short-term intubation. 3. Viral bronchitis. 4. Possible community-acquired pneumonia. 5. Carotid artery disease with right internal carotid artery occlusion. 6. Systolic congestive heart failure, compensated. 7. Atrial fibrillation with rapid ventricular response. HOSPITAL COURSE: This is a 72-year-old man who presented with shortness of breath. He was intubated initially overnight but extubated the following day. Workup included respiratory panel which was po sitive for human rhinovirus/enterovirus. Echocardiogram showed a decrement in his EF down to approxi mately 30%. Because of this, he underwent a cardiac catheterization, which showed a chronic total oc clusion of the LAD. This was not amenable to stenting. He did have good collaterals. He was seen b y Cardiothoracic Surgery who recommended CABG. Initially we hoped to perform that surgery this admis ekta; however, given his respiratory status with ongoing bronchitis, we have elected to delay the CAB G as he would likely have significant postoperative complications. I as well as Cardiology feels elham t he is safe for discharge given that he has had no ongoing chest pain, had good collateralization on his cath, and has not had any ventricular tachycardia on his telemetry. He will be discharged with appropriate medications for his CHF including carvedilol, lisinopril as we ll as furosemide (I am giving him low-dose potassium). He will be treated for his coronary artery di sease with aspirin as well as a statin in addition to his apixaban. I have recommended that he do no t exercise significantly prior to his CABG. He is given an albuterol inhaler as well as Mucinex for his pneumonitis. He has a followup with Edward Smart 9 days after discharge. The timing of his CABG is to be determined; however, when his respiratory status has improved, he will likely be ready for bypass. I discussed all this with him as well as his caregiver. He is discharged in stable but guarded condition. FOLLOWUP: 1. Edward Smart 9 days after admission, he has an appointment on May 13 at [address] Andersen, time to be determined. BILLING: I spent more than 30 minutes on the day of discharge coordinating care. /[id number]/MODL
[2018-05-04 11:58] VITALS: BP 137/67
--- NOTE | 2018-05-04 12:28 | ASMTDCNOTE ---
Case Management Discharge Discharge Order Complete? Answers: Yes Patient to Obtain Answers: Other Notes: caregivers Medications Transportation Arranged Answers: Other Notes: caregiver Discharge Comments Notes: Pt is discharging home today. Spoke with him and his caregiver. He will be receiving 24/7 care from caregivers through [facility]. He has a follow up cardiology appt 05/13 to assess his respiratory condition and whether he will be cleared for planned CABG. Depending on outcome of that visit, [facility] and pt will determine if he still requires 24/7 assistance. Date Signed: 05/04/2018 12:26 PM Electronically Signed By:ZEINAB Govea
--- NOTE | 2018-05-07 08:58 | CPEKG ---
Test Reason : OPEN Blood Pressure : / mmHG Vent. Rate : 180 BPM Atrial Rate : 181 BPM P-R Int : 158 ms QRS Dur : 096 ms QT Int : 300 ms P-R-T Axes : 082 050 102 degrees QTc Int : 520 ms Supraventricular tachycardia Low voltage, extremity leads ST depression, probably rate related SVT has replaced normal sinus rhythm noted on prior ECG Confirmed by Freddie Sims ([id number]) on 05/07/2018 8:58:07 AM Referred By: Confirmed By:Freddie Sims
== END 2018-05-04 12:44 | disposition home health service (06) | DRG 208 ==
LOC: F2N 23:35 → F2W 04-30 17:25
PROVIDERS: ADMIT Internal Medicine; ATTEND Internal Medicine
PROC: 0BH18EZ Insertion of Endotracheal Airway into Trachea, Via Natural or Artificial Opening Endoscopic (ICD-10-PCS; principal; 2018-04-29)
PROC: 5A1935Z Respiratory Ventilation, Less than 24 Consecutive Hours (ICD-10-PCS; principal; 2018-04-29)
PROC: B2151ZZ Fluoroscopy of Left Heart using Low Osmolar Contrast (ICD-10-PCS; 2018-05-01)
PROC: 4A023N8 Measurement of Cardiac Sampling and Pressure, Bilateral, Percutaneous Approach (ICD-10-PCS; 2018-05-01)
PROC: B2111ZZ Fluoroscopy of Multiple Coronary Arteries using Low Osmolar Contrast (ICD-10-PCS; 2018-05-01)
DX: J96.01 Acute respiratory failure with hypoxia (principal); I21.4 Non-ST elevation (NSTEMI) myocardial infarction; J18.8 Other pneumonia, unspecified organism; I50.22 Chronic systolic (congestive) heart failure; I51.81 Takotsubo syndrome; J45.901 Unspecified asthma with (acute) exacerbation; J20.6 Acute bronchitis due to rhinovirus; I48.0 Paroxysmal atrial fibrillation; I65.21 Occlusion and stenosis of right carotid artery; I25.10 Atherosclerotic heart disease of native coronary artery without angina pectoris; Z79.01 Long term (current) use of anticoagulants; Z86.73 Personal history of transient ischemic attack (TIA), and cerebral infarction without residual deficits
CPT/HCPCS: 84484-PO; 87449-90; 96365; 97116-GP; 97161-GP; 97165-GO; 97530-GO; 97530-GP; 97535-GO; C1760; C1769; C1887; G8978-GP-CK; G8979-GP-CI; G8987-GO-CK; G8988-GO-CI; J0330; J0456; J0583; J1644; J1940; J1956; J2250; J2704; J2930; J3010; J7613; Q9967

== ENCOUNTER 2018-05-22 14:06 | Emergency (ER) | payer OTHER ==
[2018-05-22] MEDS ORDERED: IPRATROPIUM/ALBUTEROL 3 ML DEYVIAL IH ONE (16:44)
--- NOTE | 2018-05-22 16:56 | EDPHY ---
H & P Stated Complaint: Chest congestion without CP since this AM. Clear mucous. Time Seen by Provider: 05/22/18 16:29 HPI/ROS: CHIEF COMPLAINT: Cough HISTORY OF PRESENT ILLNESS: The patient presents to the ED after he developed a dry nonproductive cough. The patient was recently hospitalized from April 28 20 sec with a non ST segment elevation [place], respiratory failure, viral bronchitis and possible pneumonia. Patient was diagnosed with multi-vessel coronary artery disease and is currently being referred to cardiothoracic surgery as an outpatient. The patient denies any current chest pain. He is currently on medications for congestive heart failure including carvedilol and lisinopril. The patient was discharged on a prescription for albuterol and Mucinex for pneumonitis. The patient denies any asymmetric calf pain or swelling. He denies fever. He denies any abdominal pain, vomiting or diarrhea. REVIEW OF SYSTEMS: A comprehensive 10 point review of systems is otherwise negative aside from elements mentioned in the history of present illness. Source: Patient Exam Limitations: No limitations - Personal History Current Tetanus/Diphtheria Vaccine: Yes - Medical/Surgical History Hx Asthma: No Hx Chronic Respiratory Disease: No Hx Diabetes: No Hx Cardiac Disease: Yes Hx Renal Disease: No Hx Cirrhosis: No Hx Alcoholism: No Hx HIV/AIDS: No Hx Splenectomy or Spleen Trauma: No Other PMH: Right ACL, Stroke, Left sided deficits, dvt,WA, afib - Social History Smoking Status: Never smoked - Physical Exam Exam: General Appearance: Alert, no distress Eyes: Pupils equal and round no pallor or injection ENT, Mouth: Mucous membranes moist Respiratory: There are no retractions, lungs are clear to auscultation Cardiovascular: Regular rate and rhythm Gastrointestinal: Abdomen is soft and nontender, no masses, bowel sounds normal Neurological: A&O, normal motor function, normal sensory exam, normal cranial nerves Skin: Warm and dry, no rashes Musculoskeletal: Neck is supple nontender Extremities: symmetrical, full range of motion Psychiatric: Patient is oriented X 3, there is no agitation Constitutional: Initial Vital Signs Temperature (C) 36.9 C 05/22/18 14:25 Heart Rate 66 05/22/18 14:25 Respiratory Rate 16 05/22/18 14:25 Blood Pressure 139/71 H 05/22/18 14:25 O2 Sat (%) 95 05/22/18 14:25 O2 Delivery Mode Room Air Allergies/Adverse Reactions: No Known Allergies Allergy (Verified 05/22/18 14:24) Home Medications: Medication Instructions Recorded Apixaban [Eliquis] 5 mg PO BID 04/28/18 Tamsulosin HCl [Flomax 0.4 MG (*)] 0.4 mg PO HS 04/28/18 Albuterol [Proventil Inhaler HFA 2 puffs IH Q4 #1 mdi 05/04/18 (*)] Aspirin [Aspirin 325 mg (*)] 325 mg PO DAILY tab 05/04/18 Atorvastatin Calcium [Lipitor 10 10 mg PO DAILY #30 tab 05/04/18 mg (*)] Carvedilol [Coreg (*)] 6.25 mg PO BIDMEAL #60 tab 05/04/18 Furosemide [Lasix 40 MG (*)] 40 mg PO DAILY #30 tab 05/04/18 Lisinopril [Zestril 5 mg (*)] 5 mg PO DAILY #30 tab 05/04/18 Potassium Chloride 10 meq PO DAILY #30 tab.er.prt 05/04/18 guaiFENesin [Mucinex 600 MG (*)] 1,200 mg PO BID tab.er 05/04/18 Albuterol [Proventil Inhaler HFA 1 - 2 puffs IH Q4H #1 mdi 05/22/18 (*)] Medical Decision Making - Diagnostics Imaging Results: Imaging Impressions Chest X-Ray 05/22/18 16:42 Impression: No evidence for acute cardiopulmonary abnormality. ED Course/Re-evaluation: I reviewed the patient's past medical records including his history and discharge summary from his April hospitalization. The patient has no complaints of acute chest pain. He has a slight dry nonproductive cough. He had this at discharge. Initially had improved with inhaler as an outpatient. The patient's chest x-ray today demonstrates no evidence of an acute pulmonary abnormality. Patient was given a DuoNeb breathing treatment in the emergency department with improvement of his symptoms. Patient is scheduled to follow-up with Cardiology as an outpatient. The patient has been encouraged to continue to use his albuterol. The patient will be discharged home in stable condition at this point time. Differential Diagnosis: Differential diagnosis considered includes asthma, bronchitis, pneumonia, pneumonitis - Data Points Laboratory Results: Laboratory Results 05/22/18 17:02 05/22/18 17:02 05/22/18 05/22/18 17:02 17:02 WBC 7.15 10^3/uL 10^3/uL (3.80-9.50) RBC 4.19 10^6/uL L 10^6/uL (4.40-6.38) Hgb 13.3 g/dL L g/dL (13.7-17.5) Hct 38.8 % L % (40.0-51.0) MCV 92.6 fL fL (81.5-99.8) MCH 31.7 pg pg (27.9-34.1) MCHC 34.3 g/dL g/dL (32.4-36.7) RDW 13.9 % % (11.5-15.2) Plt Count 231 10^3/uL 10^3/uL (150-400) MPV 9.8 fL fL (8.7-11.7) Neut % (Auto) 65.9 % % (39.3-74.2) Lymph % (Auto) 19.0 % % (15.0-45.0) [place] % (Auto) 10.6 % % (4.5-13.0) Eos % (Auto) 4.1 % % (0.6-7.6) Baso % (Auto) 0.3 % % (0.3-1.7) Nucleat RBC Rel Count 0.0 % % (0.0-0.2) Absolute Neuts (auto) 4.71 10^3/uL 10^3/uL (1.70-6.50) Absolute Lymphs (auto) 1.36 10^3/uL 10^3/uL (1.00-3.00) Absolute Monos (auto) 0.76 10^3/uL 10^3/uL (0.30-0.80) Absolute Eos (auto) 0.29 10^3/uL 10^3/uL (0.03-0.40) Absolute Basos (auto) 0.02 10^3/uL 10^3/uL (0.02-0.10) Absolute Nucleated RBC 0.00 10^3/uL 10^3/uL (0-0.01) Immature Gran % 0.1 % % (0.0-1.1) Immature Gran # 0.01 10^3/uL 10^3/uL (0.00-0.10) Sodium 135 mEq/L mEq/L (135-145) Potassium 4.4 mEq/L mEq/L (3.3-5.0) Chloride 104 mEq/L mEq/L (97-110) Carbon Dioxide 21 mEq/l L mEq/l (22-31) Anion Gap 10 mEq/L mEq/L (6-14) BUN 14 mg/dL mg/dL (7-23) Creatinine 0.7 mg/dL mg/dL (0.7-1.3) Estimated GFR > 60 Glucose 97 mg/dL mg/dL (70-100) Calcium 9.3 mg/dL mg/dL (8.5-10.4) Medications Given: Discontinued Medications Albuterol/Ipratropium (Duoneb) 3 ml IH EDNOW ONE Stop: 05/22/18 16:45 Last Admin: 05/22/18 16:56 Dose: 3 ml Departure - Departure Disposition: Home, Routine, Self-Care Clinical Impression: Chronic cough Condition: Good Instructions: Chronic Cough (ED) Additional Instructions: 1. Please use albuterol inhaler up to every 2 hr as needed for cough. 2. Return to the emergency department for any markedly worsening symptoms or other concerns. 3. Please follow up with Cardiology as scheduled for further discussion surrounding your heart disease. 4. Return to the ED for any markedly worsening shortness of breath, any chest pain or other concerns. Referrals: Yoni Lakhani MD [Primary Care Provider] - As per Instructions
[2018-05-22 17:15] LABS: PLATELET COUNT 231 10^3/uL (150-400)
[2018-05-22 18:20] VITALS: BP 172/74
[2018-05-22] MEDS ORDERED: ALBUTEROL INH PREPACK MDI TAKEHOME ONE ×2 (19:03→19:05)
== END 2018-05-22 18:41 | disposition home or self-care (01) ==
DX: R05 Cough (principal); I50.9 Heart failure, unspecified; I25.10 Atherosclerotic heart disease of native coronary artery without angina pectoris; I25.2 Old myocardial infarction; Z87.09 Personal history of other diseases of the respiratory system

== ENCOUNTER 2018-05-27 07:44 | Day surgery (SDC) | payer OTHER ==
[2018-05-27] MEDS ORDERED: MIDAZOLAM 2 MG/2 ML VIAL IVP ONE (08:22)
[2018-05-27] MEDS ORDERED: BENZOCAINE UNIT DOSE SPRAY HURRICAINE MM ONE (08:22)
[2018-05-27] MEDS ORDERED: fentaNYL 100 MCG/2 ML INJ IVP ONE (08:22)
[2018-05-27] MEDS ORDERED: NS 500 ML IV ONE (08:22)
--- NOTE | 2018-05-27 18:02 | ECHO ---
[email or web address] [address] Main: [phone] Fax: Transesophageal Echocardiography Name: ANDRIA ENGLAND MR#: [id number] Study Date: 05/27/2018 Study Time: 09:53 AM Date of : 1945 Age: 72 year(s) Height: ( ) Weight: ( ) BSA: Gender: Male Examination: MARIA TERESA Indication: eval valves and ef Image Quality: Adequate Contrast: Requested by: Nasim Salgado Heart Rate: Rhythm: BP: / Procedure Staff [place] Fitter: Teresita Ordonez RDCS Reading Physician: Juan Maritnez MD Requesting Provider: MARIA TERESA Exam Details Conclusions: Normal size left ventricle. Low normal left ventricular systolic function. EF is 50 %. Normal size right ventricle. An agitated saline study was performed and was negative for intracardiac shunting. The left atrial appendage is unilobular. No thrombus in left appendage. Mild to moderate mitral regurgitation. Trivial to mild aortic valve regurgitation. Mild tricuspid regurgitation is present. Measurements: Chambers Valvular Assessment AV/MV Valvular Assessment TV/PV Normal Normal Normal Name Value Range Name Value Range Name Value Range LVEF (BP): 50 % (>=55 %) TR Vmax: 1.53 mm/s ( - ) TR PGmax: 9 mmHg ( - ) Additional Measurements: Findings: Left Ventricle: Normal size left ventricle. Low normal left ventricular systolic function. EF is 50 %. The ejection Patient: ANDRIA ENGLAND Study Date: 05/27/2018 Page 1 of 2 09:53 AM fraction, measured by Simpsons method, is 50 %. Right Ventricle: Normal size right ventricle. Normal RV function. Left Atrium: An agitated saline study was performed and was negative for intracardiac shunting. Left Atrial Appendage: The left atrial appendage is unilobular. No thrombus in left appendage. Mitral Valve: The mitral valve is normal in appearance and function. Mild to moderate mitral regurgitation. No mitral stenosis is present. Aortic Valve: The aortic valve is tri-leaflet. Trivial to mild aortic valve regurgitation. No aortic valve stenosis is present. Tricuspid Valve: The tricuspid valve is normal in appearance and function. Mild tricuspid regurgitation is present. Pulmonic Valve: The pulmonic valve is normal in appearance and function. Mild pulmonic valve regurgitation is noted. Aorta: Normal size. l1n (No Signature Object) Patient: ANDRIA ENGLAND Study Date: 05/27/2018 Page 2 of 2 09:53 AM [id number]
== END 2018-05-27 11:49 | disposition home or self-care (01) ==
LOC: FCATH 07:44
PROVIDERS: ATTEND Internal Medicine Cardiovascular Disease
PROC: B24BZZ4 Ultrasonography of Heart with Aorta, Transesophageal (ICD-10-PCS; principal; 2018-05-27)
DX: I08.3 Combined rheumatic disorders of mitral, aortic and tricuspid valves (principal); I25.10 Atherosclerotic heart disease of native coronary artery without angina pectoris; I25.82 Chronic total occlusion of coronary artery; I10 Essential (primary) hypertension; I48.0 Paroxysmal atrial fibrillation; Z86.73 Personal history of transient ischemic attack (TIA), and cerebral infarction without residual deficits; Z79.01 Long term (current) use of anticoagulants
CPT/HCPCS: J2250; J3010

== ENCOUNTER 2018-06-15 09:03 | Inpatient (IN) | payer OTHER ==
[~2018-06-15 09:03] MED LIST: ADENOSINE 6 MG/2 ML VIAL ONE; ALBUMIN 5% 250 ML BOTTLE IV ONE; AMINOCAPROIC ACID 5 GM/20 ML VIAL IV ONE; AMIODARONE HCL 150 MG/3 ML VIAL ONE; CALCIUM CHLORIDE 1 GM/10 ML INJ ONE; CARDIOPLEGIC SOLUTION 1,052.8 ML PF ONE; CITRATE DEXTROSE SOLN 500 ML BAG ONE; DOPamine/DEXTROSE 400 MG/250 ML BAG IV ONE; HEPARIN 10,000 UNIT/10 ML MDV (1,000 UNIT/ML) ONE; INSULIN REGULAR HUMAN 100 UNIT in NS 100 ML IV ONE; LIDOCAINE 2% 100 MG/5 ML SYR ONE; MAGNESIUM SULFATE 1 GM/2 ML VIAL ONE; MANNITOL 25% 12.5 GM/50 ML VIAL IVP ONE; MILRINONE/DEXTROSE/100 ML BAG IV ONE; NA BICARBONATE 50 MEQ/50 ML VIAL ONE; NITROGLYCERIN/D5W 50 MG/250 ML BOTTLE IV ONE; NOREPINEPHRINE BITARTRATE 16 MG in NS 250 ML IV ONE; PHENYLEPHRINE HCL 50 MG in NS 250 ML IV ONE; PROTAMINE SULFATE 50 MG/5 ML VIAL IVP ONE; SODIUM BICARBONATE 50 MEQ/50 ML SYR ONE; VERAPAMIL 5 MG, NITROGLYCERIN 2.5 MG, HEPARIN 500 UNIT, SODIUM BICARBONATE 0.2 MEQ in L... MISC ONE; ceFAZolin 1 GM VIAL ONE; methylPREDNISolone SOD SUCC 1 GM/8 ML VIAL ONE; niCARdipine/NACL 200 ML IV ONE; niCARdipine/NACL/200 ML BAG IV ONE
[2018-06-15] MEDS ORDERED: ceFAZolin 2 GM/DEXTROSE 100 ML IV ONE (09:30)
[2018-06-15] MEDS ORDERED: MUPIROCIN 2% 22 GM OINT NS ONE (09:30)
[2018-06-15] MEDS ORDERED: CITRATE DEXTROSE SOLN 500 ML BAG MISC ONE (09:30)
[2018-06-15] MEDS ORDERED: LR 1,000 ML IV ONE (09:49)
[2018-06-15] MEDS ORDERED: MIDAZOLAM 2 MG/2 ML VIAL IVP ONE (09:53)
--- NOTE | 2018-06-15 09:53 | PDANEPAE ---
ANE History of Present Illness 72 yo for cabg ANE Past Medical History - Cardiovascular History Hx Hypertension: Yes Hx Arrhythmias: Yes Hx Chest Pain: Yes Hx Coronary Artery / Peripheral Vascular Disease: Yes Hx CHF / Valvular Disease: Yes Hx Palpitations: No Cardiovascular History Comment: hx of MS. hx of DVT. PAF. ischemic cardiomyopathy EF 30%. CAD. CHF. htn. syncope with collapse. cath . followed by [facility] - Pulmonary History Hx COPD: No Hx Asthma/Reactive Airway Disease: Yes Hx Recent Upper Respiratory Infection: Yes Hx Oxygen in Use at Home: No Hx Sleep Apnea: No Sleep Apnea Screening Result - Last Documented: Positive Pulmonary History Comment: 04/28-05/04/18 hospitalized for resp failure with intubation. positive for human rhinovirus and enterovirus - Neurologic History Hx Cerebrovascular Accident: Yes Hx Seizures: No Hx Dementia: No Neurologic History Comment: 12/2015- left sided deficits uses cane for imbalance - Endocrine History Hx Diabetes: No - Renal History Hx Renal Disorders: Yes Renal History Comment: frequency - Liver History Hx Hepatic Disorders: No - Neurological & Psychiatric Hx Hx Neurological and Psychiatric Disorders: No - Cancer History Hx Cancer: No - Congenital Disorder History Hx Congenital Disorders: No - GI History Hx Gastrointestinal Disorders: Yes Gastrointestinal History Comment: enterovirus 04/28/18 appetite and gi habits have returned to normal. hx of rectal polyp - Other Health History Other Health History: wears glasses - Chronic Pain History Chronic Pain: No - Surgical History Prior Surgeries: cardiac cath 05/01/18. eye surgery-removed film from retina 2014 ANE Review of Systems Review of Systems: - Exercise capacity METS (RN): 3 METS ANE Patient History - Allergies Allergies/Adverse Reactions: No Known Allergies Allergy (Verified 06/08/18 12:30) - Home Medications Home medications: home medication list seen and reviewed Home Medications: Apixaban [Eliquis] 5 mg PO BID 04/28/18 [Last Taken 06/11/18] Tamsulosin HCl [Flomax 0.4 MG (*)] 0.4 mg PO HS 04/28/18 [Last Taken 06/14/18 20 :00 0.4] Albuterol [Proventil Inhaler HFA (*)] 1 - 2 puffs IH Q4H PRN 06/01/18 [Last Taken 06/11/18] guaiFENesin/DEXTROMETHORPHAN [Robafen-Dm Syrup] 20 ml PO Q4-6PRN PRN 06/01/18 [ Last Taken Unknown] Enoxaparin [Lovenox 80 MG (*)] 80 mg SQ BID 06/15/18 [Last Taken 06/15/18] - NPO status NPO Status: no food or drink >8 hours NPO Since - Liquids (Date): 06/15/18 NPO Since - Liquids (Time): 07:30 NPO Since - Solids (Date): 06/14/18 NPO Since - Solids (Time): 17:00 - Anes Hx Anes Hx: no prior problems - Smoking Hx Smoking Status: Never smoked - Family Anes Hx Family Hx Anesthesia Complications: none ANE Labs/Vital Signs - Vital Signs Blood Pressure: 136/83 Heart Rate: 62 Respiratory Rate: 16 O2 Sat (%): 97 Height: 5 ft 10.08 in Weight: 74.8 kg ANE Physical Exam - Airway Neck exam: FROM Mallampati Score: Class 2 Mouth exam: normal dental/mouth exam - Pulmonary Pulmonary: no respiratory distress - Cardiovascular Cardiovascular: regular rate and rhythym - ASA Status ASA Status: IV ANE Anesthesia Plan Anesthesia Plan: general endotracheal anesthesia Lines/Monitors: arterial line, central line, MARIA TERESA
[2018-06-15] MEDS ORDERED: fentaNYL 100 MCG/2 ML INJ ONE (09:57)
[2018-06-15] MEDS ORDERED: REMIFENTANIL HCL 1 MG VIAL ONE (09:57)
[2018-06-15] MEDS ORDERED: PROPOFOL/EMULSION 500 MG/50 ML BOTTLE IV ONE (09:58)
[2018-06-15] MEDS ORDERED: ROCURONIUM 100 MG/10 ML VIAL ONE (10:00)
--- NOTE | 2018-06-15 10:01 | PDHPUP ---
History & Physical Update H&P update statement: This history and physical update is based on an assessment of the patient which was completed after admission or registration (within 24 hours), but prior to the surgery/procedure. H&P update: H&P reviewed & patient examined, changes noted (05/27/18 MARIA TERESA notable for Nl LV chamber size with EF 50% and mild to mod MR.) H&P changes: Cough fully resolved
[2018-06-15] MEDS ORDERED: PAPAVERINE HCL 60 MG/2 ML SDV ONE (10:14)
[2018-06-15] MEDS ORDERED: VERAPAMIL 5 MG/2 ML VIAL ONE (10:14)
[2018-06-15] MEDS ORDERED: DEXMEDETOMIDINE HCL 400 MCG in NS 100 ML IV SCH (11:30)
[2018-06-15] MEDS ORDERED: HYDROmorphONE/DILAUDID 2 MG/ML INJ ONE (12:41)
[2018-06-15] MEDS ORDERED: MINERAL OIL 10 ML VIAL ONE (13:39)
[2018-06-15] MEDS ORDERED: SUGAMMADEX SODIUM 200 MG/2 ML VIAL IVP ONE (13:54)
[2018-06-15] MEDS ORDERED: ONDANSETRON 4 MG/2 ML VIAL ONE (13:54)
[2018-06-15] MEDS ORDERED: ONDANSETRON DISINTEGRATING 4 MG TAB PO PRN (14:29)
[2018-06-15] MEDS ORDERED: fentaNYL 100 MCG/2 ML INJ IVP PRN (14:29)
[2018-06-15] MEDS ORDERED: POLYETHYLENE GLYCOL 3350 17 GM PKT PO PRN (14:29)
[2018-06-15] MEDS ORDERED: MAGNESIUM HYDROXIDE 30 ML UDCUP PO PRN (14:29)
[2018-06-15] MEDS ORDERED: ONDANSETRON 4 MG/2 ML VIAL IVP PRN (14:29)
[2018-06-15] MEDS ORDERED: LACTULOSE 20 GM/30 ML UDCUP PO PRN (14:29)
[2018-06-15] MEDS ORDERED: METOCLOPRAMIDE 10 MG/2 ML VIAL IVP PRN (14:29)
[2018-06-15] MEDS ORDERED: SODIUM CL NASAL 45 ML BTL EACHNARE PRN (14:29)
[2018-06-15] MEDS ORDERED: D50W 25 GM/50 ML SYR IVP PRN (14:29)
[2018-06-15] MEDS ORDERED: BISACODYL 10 MG SUPP PR PRN (14:29)
[2018-06-15] MEDS ORDERED: MEPERIDINE 25 MG/0.5 ML AMP IVP PRN (14:29)
[2018-06-15] MEDS ORDERED: PANTOPRAZOLE SODIUM 40 MG VIAL IVP ONE (14:29)
[2018-06-15] MEDS ORDERED: ACETAMINOPHEN 650 MG SUPP PR PRN (14:29)
[2018-06-15] MEDS ORDERED: HYDROCODONE/APAP 5/325 TAB PO PRN (14:29)
[2018-06-15] MEDS ORDERED: NS 1,000 ML IV SCH (14:30)
[2018-06-15] MEDS ORDERED: INSULIN REGULAR HUMAN 100 UNIT in NS 100 ML IV SCH (14:30)
[2018-06-15] MEDS ORDERED: ALBUTEROL 3 ML DEYVIAL ONE (14:39)
--- NOTE | 2018-06-15 15:03 | PDMN ---
Medical Necessity Medical [place] [facility] [place] 4 [place] [facility] INPT only OP: CABG X1, MVR,CM4, AUTH # [id number] FOR CPT 08392 VALID 06/15 - 06/16. DONE IN PT
[2018-06-15] MEDS: ALBUMIN 5% 250 ML IV PRN ×2 (15:37→17:23)
[2018-06-15] MEDS ORDERED: ALBUMIN 5% 250 ML IV ONE (15:40)
[2018-06-15] MEDS ORDERED: KETOROLAC 30 MG/1 ML SDV IVP ONE (15:40)
--- NOTE | 2018-06-15 17:12 | PDCONSULT ---
Audio/Video Engineer Note: ASSESSMENT 72 yo male with CAD and ischemic cardiomyopathy s/p CABG and MVR via midline sternotomy POD # 0. Initially with some postoperative wheezing but otherwise doing well. # ischemic cardiomyopathy # coronary disease status post CABG # mitral regurgitation status post MVR # paroxysmal AFib on Eliquis as outpatient # history of DVT right lower extremity 2016-on Eliquis # history of asthma PLAN # aggressive pulmonary toilet # wean oxygen as tolerated # target goal saturations 92-95%, avoid high proxy a # aspirin # advance diet as tolerated # Feeding - advance as tolerated # Analgesia APAP, narcotics # Sedation none # Thromboprophylaxis - SQ hep # Head of bed elevated # Ulcer prophylaxis - H2 che # Glucose SSI # Skin no skin breakdown # Delirium - delirium precautions Was asked by Dr. Cherelle cagle of cardiothoracic surgery to consult on this patient for postoperative ICU care Chief complaint atrial fibrillation, chest pain, respiratory failure HPI MrKamaljit To a very pleasant 72-year-old male who is status post open heart surgery with 2 vessel CABG and Maze procedure. Is history of paroxysmal AFib atrial fibrillation and CVA. He was hospitalized April 28 through the with hypoxemic respiratory failure and decompensated heart failure with reduced ejection fraction. Patient also history of asthma and routinely uses inhaler. Allergies no known drug allergies Medications Aspirin 325 mg p.o. Daily, atorvastatin 10 mg p. O. At bedtime, carvedilol 6.25 mg p. O. Twice daily, Eliquis 5 mg p. O. Twice daily, ProAir 90 mcg-aerosolized inhaler, tamsulosin 0.4 mg daily Past medical history Paroxysmal atrial fibrillation Severe coronary disease CVA Congestive heart failure reduced systolic function, DVT, right leg 2016, hypertension, obesity, gout Family history No family history of ischemic cardiomyopathy requiring CABG and Maze Social history Retired, former smoker Review of systems unable to be obtained secondary to patient's mental status Vitals Blood pressure 122/71, map 88, heart rate 90, paced respiratory rate 22 sign 100 % 4 L nasal cannula, CVP 12 GEN: Somnolent, arousable resting in bed NEURO: Somnolent, opens eyes to arousal no focal deficits HEENT: PERRL, EOMI, MMM, OP clear NECK: supple, trachea midline CHEST midline sternotomy incision clean dry and intact, mediastinal drains in place CVS: Regular rate, pericardial rub present PULM: CTA B, no wheezes/rales/rhonchi ABD: soft, NT, ND, NABS EXT: no swelling, no cyanosis, full ROM SKIN: warm, dry, intact, no rash PSYCH somnolent arousable DATA I have personally reviewed the laboratory data and radiographic images. LABS Reviewed. Pertinent for hemoglobin 12.9, platelets 236, sodium 136, potassium 4.1, creatinine 0.7, Mag 2.2 IMAGING The personally reviewed the radiographic images as well as the formal radiologist reads. 06/15/2018-chest [id number] surgical changes expected. No large pneumothorax. Chest drains and right IJ in place. CARDIAC STUDIES Reviewed, intraoperative MARIA TERESA with LVEF 50%, improved from prior
--- NOTE | 2018-06-15 17:41 | POSTANESTH ---
Post Anesthetic Evaluation Cardiovascular Status: Normal, Stable Respiratory Status: Tx Decrease in SpO2 Level of Consciousness/Mental Status: Mildly Sleepy, Arousable Pain Control: Adequate, Prn Tx Ordered Nausea/Vomiting Control: Adequate, Prn Tx Ordered Complications Possibly Related to Anesthesia: None Noted
[2018-06-15] MEDS: POTASSIUM Cl (KCl) 50 ML IV PRN ×2 (18:10→18:55)
[2018-06-15] MEDS: ACETAMINOPHEN 325 MG TAB PO PRN (20:19)
[2018-06-15] MEDS: MUPIROCIN 2% 22 GM OINT NS SCH (21:17)
[2018-06-15] MEDS: ceFAZolin 2 GM/DEXTROSE 100 ML IV SCH (21:20)
--- NOTE | 2018-06-15 21:22 | GOP ---
DATE OF OPERATION: 06/15/2018 SURGEON: Javon Andersen DO [employer]ORATORY TECHNICIAN: Rosalind Little, PAC. ANESTHESIA: Eris Arias MD. PREOPERATIVE DIAGNOSIS: 1. Arteriosclerotic heart disease with anterior wall ischemia. 2. Moderate mitral insufficiency. 3. Longstanding persistent atrial fibrillation. POSTOPERATIVE DIAGNOSIS: 1. Arteriosclerotic heart disease with anterior wall ischemia. 2. Moderate mitral insufficiency. 3. Longstanding persistent atrial fibrillation. PROCEDURE PERFORMED: 1. Left internal mammary artery to the left anterior descending. 2. Mitral valve annuloplasty with a #28 Physio 1 ring. 3. Biatrial Aponte Maze 4 with testing utilizing both radiofrequency and cryo. FINDINGS: The patient was brought to the operating room, intubated, and monitoring lines were placed . He was prepped and draped in sterile classical manner. Sternotomy was performed. He was heparini zed and cannulated with bicaval cannulas with tapes. We then performed testing on both pulmonary vei ns, left and right, and found no evidence of entrance or exit block with full conduction. We then in itiated cardiopulmonary bypass, encircled the right pulmonary veins and left pulmonary veins, and did approximately 12-15 ablations with 3 overlapping lesion sets with the last each set being less than 5 seconds. We then retested both pulmonary veins and found no evidence of conduction with both entra nce and exit block confirmed. We then arrested the heart with antegrade cardioplegia, opened the lef t atrium, exposed the entire left atrium. We then performed the left-sided ablation with radiofrequency on the roof and floor lesions overlappi ng the left inferior pulmonary vein. We did cryo across the mitral isthmus overlapping it with the c oronary sinus lesion. We then sized the patient for a #28 mm ring which was sutured in place with Co r-Knots without evidence of regurgitation on distention of the ventricle. Left atrium was closed. T he patient was de-aired through the apex, placed in Trendelenburg. We then grafted the mammary to a good quality 2.8 mm LAD without difficulty. The mammary had excellent flow. It was tacked to the ep icardium. It should be noted that we also performed the lesion through the appendage across the left superior pulmonary vein and placed an AtriClip. We then removed the cross-clamp with suction on the ascending aortic vent. Spontaneous cardiac activ ity was noted to resume. We then did a vertical atriotomy across the infundibulum and performed supe rior and inferior caval lines as well as a free wall line with radiofrequency and an isthmus line wit h cryoablation at 1 o'clock. Atriotomy was closed in a 2-layer fashion. Spontaneous cardiac activit y was noted to resume. The patient was then de-aired in Trendelenburg and then subsequently weaned f rom bypass when no further air was identified in Trendelenburg with suction on the ascending aortic v ent. Heparin was reversed with protamine. Cannula was removed and oversewn. 4 pacing wires, 1 left pleural, and 1 mediastinal drain were placed. The thymic fat and pericardium were closed. Chest wa s closed in standard fashion. The patient was returned to ICU in stable condition. DESCRIPTION OF PROCEDURE: /[id number]/MODL
[2018-06-15] MEDS: CEPACOL LOZENGE PO PRN (21:37)
[2018-06-16] MEDS: ACETAMINOPHEN 325 MG TAB PO PRN ×4 (02:13→19:55)
[2018-06-16] MEDS: traMADol 50 MG TAB PO PRN ×4 (02:14→21:48)
[2018-06-16 04:21] LABS: PLATELET COUNT 131 10^3/uL (150-400)
[2018-06-16 04:48] LABS: INR 1.16 (0.83-1.16)
[2018-06-16] MEDS: HEPARIN 5,000 UNIT/0.5 ML INJ SC SCH ×3 (05:39→21:42)
[2018-06-16] MEDS: ceFAZolin 2 GM/DEXTROSE 100 ML IV SCH ×3 (05:40→21:41)
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
[2018-06-16] MEDS: PANTOPRAZOLE SODIUM 40 MG TAB PO SCH (08:28)
[2018-06-16] MEDS: ASPIRIN 81 MG CHEWABLE TAB PO SCH (08:28)
[2018-06-16] MEDS: MUPIROCIN 2% 22 GM OINT NS SCH ×2 (08:29→19:55)
[2018-06-16] MEDS ORDERED: ALBUMIN 5% 250 ML IV ONE (08:43)
--- NOTE | 2018-06-16 11:20 | ASMTCMCOM ---
CM Note CM Note Notes: Pt 72 yo M on ICU post operative CABG. Pt discussed in rounds. Awaiting therapy evals. Pt discharge needs TBD. Plan: TBD Date Signed: 06/16/2018 11:20 AM Electronically Signed By:ARIC Valadez
[2018-06-16] MEDS: ALBUTEROL 3 ML DEYVIAL IH PRN (13:56)
[2018-06-16] MEDS: CEPACOL LOZENGE PO PRN (14:39)
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
[2018-06-16] MEDS ORDERED: WARFARIN SODIUM 2.5 MG TAB PO ONE (16:00)
[2018-06-16] MEDS ORDERED: FUROSEMIDE 20 MG/2 ML VIAL IVP ONE (18:15)
[2018-06-17] MEDS: traMADol 50 MG TAB PO PRN ×3 (05:21→17:44)
[2018-06-17 05:42] LABS: INR 1.3 (0.83-1.16); PROTIME(PATIENT) 16.4 SEC (12.0-15.0)
[2018-06-17] MEDS: ceFAZolin 2 GM/DEXTROSE 100 ML IV SCH (05:44)
[2018-06-17] MEDS: HEPARIN 5,000 UNIT/0.5 ML INJ SC SCH ×3 (05:45→20:57)
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
[2018-06-17] MEDS ORDERED: FUROSEMIDE 40 MG TAB PO ONE (09:00)
[2018-06-17] MEDS: ASPIRIN 81 MG CHEWABLE TAB PO SCH (09:16)
[2018-06-17] MEDS: SENNOSIDES/DOCUSATE SODIUM TAB PO SCH ×2 (09:16→20:56)
[2018-06-17] MEDS: PANTOPRAZOLE SODIUM 40 MG TAB PO SCH (09:16)
[2018-06-17] MEDS: MUPIROCIN 2% 22 GM OINT NS SCH (09:17)
[2018-06-17] MEDS: ACETAMINOPHEN 325 MG TAB PO PRN ×2 (10:44→17:04)
[2018-06-17] MEDS: ALBUTEROL 3 ML DEYVIAL IH PRN (11:38)
--- NOTE | 2018-06-17 12:33 | ECHO ---
[email or web address] [address] Main: [phone] Fax: Transthoracic Echocardiogram Name: ANDRIA ENGLAND MR#: [id number] Study Date: 06/17/2018 Study Time: 10:19 AM Date of : 1945 Age: 72 year(s) Height: 177.8 cm (70 in.) Weight: 75.75 kg (167 lb.) BSA: 1.93 m2 Gender: Male Examination: Echo Indication: Marginal hemodynamics post CABG/MV repair/eval MV fx, LV fx/R/O pericardial effusion Image Quality: Technically Difficult Contrast: Requested by: Rosalind Little BP: 129 mmHg/74 mmHg Heart Rate: Rhythm: Indication: Marginal hemodynamics post CABG/MV repair/eval MV fx, LV fx/R/O pericardial effusion Procedure Staff Snack Bar Attendant: Jacklyn Leal [facility] Reading Physician: Freddie Sims MD Requesting Provider: Conclusions: Normal size left ventricle. No LV hypertrophy. The ejection fraction is estimated to be 50-55 %. Diastolic dysfunction is present. . LV septal motion consistent with conduction abnormality. LV basal inferior wall appears slightly aneurysmal and hypokinetic.. There is no mitral valve regurgitation. An annuloplasty ring is noted in the mitral valve position. The aortic valve is normal in appearance and function. The aortic valve is tri-leaflet. Trivial aortic valve regurgitation. Mild tricuspid regurgitation is present. Trivial to mild pulmonic valve regurgitation. No pericardial effusion. In comparison to prior echocardiography from 05-27-18 the degree of mitral regurgitation is less (from mild to moderate to current "none"). Similar LVEF noted. Measurements: Chambers Valvular Assessment AV/MV Valvular Assessment TV/PV Normal Normal Normal Name Value Range Name Value Range Name Value Range Ao Maribel (MM): 3.6 cm (2.2 cm-3.7 AV Vmax: 1.34 m/s (1 m/s-1.7 TR Vmax: 2.70 mm/s ( - ) cm) m/s) TR PGmax: 29 mmHg ( - ) IVSd (2D): 1.0 cm (0.6 cm-1.1 AV meanP mmHg ( - ) syst. PAP: 34 mmHg ( - ) cm) MV E Vmax: 1.39 m/s ( - ) LVDd (2D): 5.3 cm (4.2 cm-5.9 MV A Vmax: 0.36 m/s ( - ) cm) MV E/A: 3.86 ( - ) Patient: ANDRIA ENGLAND Study Date: 06/17/2018 Page 1 of 2 10:19 AM LVPWd (2D): 0.9 cm (0.6 cm-1 cm) LVEF (MOD4): 51 % (>=55 %) EF Range: 50-55 % Continued Measurements: Chambers Valvular Assessment AV/MV Valvular Assessment TV/PV Name Value Name Value Name Value LADs: 3.5 cm MV E' Septal: 0.05 m/s CVP (est.): 5 mmHg LADs Lon.1 cm MV E/E' Septal: 30.30 LA Area: 16.2 cm2 MV E/E' Lateral: 21.00 LA Volume: 44 ml LA Volume Index: 22.8 ml/m2 Additional Vessels Name Value Ao Ascendin.3 cm Findings: Left Ventricle: Normal size left ventricle. No LV hypertrophy. The ejection fraction is estimated to be 50-55 %. Diastolic dysfunction is present. . LV septal motion consistent with conduction abnormality. LV basal inferior wall appears slightly aneurysmal and hypokinetic.. Right Ventricle: Normal size right ventricle. Left Atrium: The left atrium is normal in size. Right Atrium: The right atrium is normal in size. Mitral Valve: There is no mitral valve regurgitation. An annuloplasty ring is noted in the mitral valve position. Aortic Valve: The aortic valve is normal in appearance and function. The aortic valve is tri-leaflet. Trivial aortic valve regurgitation. Tricuspid Valve: The tricuspid valve is normal in appearance and function. Mild tricuspid regurgitation is present. The pulmonary artery pressure is normal. Pulmonic Valve: The pulmonic valve is normal in appearance. Trivial to mild pulmonic valve regurgitation. Aorta: The aorta is normal. Pericardium: No pericardial effusion. (No Signature Object) Patient: ANDRIA ENGLAND Study Date: 06/17/2018 Page 2 of 2 10:19 AM [id number]
[2018-06-17] MEDS ORDERED: WARFARIN SODIUM 5 MG TAB PO ONE (16:00)
[2018-06-17] MEDS: CEPACOL LOZENGE PO PRN ×2 (16:57→21:06)
[2018-06-17] MEDS ORDERED: FUROSEMIDE 40 MG/4 ML VIAL IVP ONE (17:44)
[2018-06-17] MEDS ORDERED: GUAIFENESIN/DM 10 ML UDCUP PO PRN (17:47)
[2018-06-17] MEDS: IPRATROPIUM/ALBUTEROL 3 ML DEYVIAL IH PRN (19:47)
[2018-06-17] MEDS: TAMSULOSIN HCL 0.4 MG CAP PO SCH (20:56)
[2018-06-18] MEDS: traMADol 50 MG TAB PO PRN ×2 (00:02→05:53)
[2018-06-18] MEDS: HEPARIN 5,000 UNIT/0.5 ML INJ SC SCH (05:56)
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
[2018-06-18] MEDS: IPRATROPIUM/ALBUTEROL 3 ML DEYVIAL IH PRN (06:33)
[2018-06-18 06:43] LABS: INR 1.78 (0.83-1.16); PROTIME(PATIENT) 20.8 SEC (12.0-15.0)
[2018-06-18] MEDS ORDERED: FUROSEMIDE 40 MG/4 ML VIAL IVP ONE (06:44)
[2018-06-18] MEDS: SENNOSIDES/DOCUSATE SODIUM TAB PO SCH ×2 (08:13→21:34)
[2018-06-18] MEDS: ATORVASTATIN CALCIUM 10 MG TAB PO SCH (08:13)
[2018-06-18] MEDS: PANTOPRAZOLE SODIUM 40 MG TAB PO SCH (08:13)
[2018-06-18] MEDS: ASPIRIN 81 MG CHEWABLE TAB PO SCH (08:14)
[2018-06-18] MEDS: POTASSIUM CL 20 MEQ TAB PO SCH ×2 (09:51→21:34)
--- NOTE | 2018-06-18 11:58 | ASMTCMCOM ---
CM Note CM Note Notes: 06/18/2018 Case Management Note Discussed with Elie Gonzalez, pt will need SNF rehab. Met w/pt and caregiver, both in agreement. Pt has previous stay at [facility] and prefers [facility] location for rehab. Faxed referral to [facility] via [employer]. Inquired about private room at pt request. If declined by [facility], pt will consider other facilities. Case Management d/c poc: [facility] SNF rehab pending acceptance. Case Management to follow. Date Signed: 06/18/2018 11:57 AM Electronically Signed By:Alyssa Cardenas RN
[2018-06-18] MEDS: FUROSEMIDE 40 MG/4 ML VIAL IVP SCH (15:24)
[2018-06-18] MEDS: IPRATROPIUM/ALBUTEROL 3 ML DEYVIAL IH SCH ×2 (15:38→22:31)
[2018-06-18] MEDS ORDERED: WARFARIN SODIUM 2.5 MG TAB PO ONE (16:00)
[2018-06-18] MEDS: TAMSULOSIN HCL 0.4 MG CAP PO SCH (21:34)
[2018-06-18] MEDS: CEPACOL LOZENGE PO PRN (22:00)
[2018-06-19] MEDS: traMADol 50 MG TAB PO PRN (05:42)
[2018-06-19] MEDS: IPRATROPIUM/ALBUTEROL 3 ML DEYVIAL IH SCH ×4 (06:11→23:47)
[2018-06-19 06:15] LABS: INR 2.08 (0.83-1.16); PROTIME(PATIENT) 23.4 SEC (12.0-15.0)
[2018-06-19] MEDS: ASPIRIN 81 MG CHEWABLE TAB PO SCH (09:29)
[2018-06-19] MEDS: POTASSIUM CL 20 MEQ TAB PO SCH ×2 (09:29→21:10)
[2018-06-19] MEDS: FUROSEMIDE 40 MG/4 ML VIAL IVP SCH ×2 (09:29→15:22)
[2018-06-19] MEDS: PANTOPRAZOLE SODIUM 40 MG TAB PO SCH (09:30)
[2018-06-19] MEDS: ATORVASTATIN CALCIUM 10 MG TAB PO SCH (09:30)
[2018-06-19] MEDS: SENNOSIDES/DOCUSATE SODIUM TAB PO SCH ×2 (09:30→21:11)
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
[2018-06-19] MEDS ORDERED: WARFARIN SODIUM 2.5 MG TAB PO ONE (16:00)
--- NOTE | 2018-06-19 16:15 | ASMTCMCOM ---
CM Note CM Note Notes: Pts case discussed w/ JOSUE Delgadillo and JOSUE Vallejo. The plan is for pt to d/c to [facility] tomorrow. Pt feels strongly that his caregiver should be present. Pt reports that his caregiver is able to be present on Friday. CM notified Elie of all of this. Pt is interested in appealing his d/c. CM had [employer] rep speak to pt about the appeals process. CM to follow. Plan: [facility] Date Signed: 06/19/2018 04:14 PM Electronically Signed By:ARIC Redmond
[2018-06-19] MEDS: TAMSULOSIN HCL 0.4 MG CAP PO SCH (21:10)
[2018-06-20] MEDS: IPRATROPIUM/ALBUTEROL 3 ML DEYVIAL IH SCH ×2 (05:42→11:43)
[2018-06-20 06:14] LABS: INR 2.13 (0.83-1.16); PROTIME(PATIENT) 23.9 SEC (12.0-15.0)
[2018-06-20] MEDS: POTASSIUM CL 20 MEQ TAB PO SCH (10:08)
[2018-06-20] MEDS: PANTOPRAZOLE SODIUM 40 MG TAB PO SCH (10:09)
[2018-06-20] MEDS: FUROSEMIDE 40 MG/4 ML VIAL IVP SCH ×2 (10:09→16:24)
[2018-06-20] MEDS: ATORVASTATIN CALCIUM 10 MG TAB PO SCH (10:10)
[2018-06-20] MEDS: SENNOSIDES/DOCUSATE SODIUM TAB PO SCH (10:10)
[2018-06-20] MEDS: ASPIRIN 81 MG CHEWABLE TAB PO SCH (10:14)
[2018-06-20 13:10] VITALS: BP 106/49
[2018-06-20] MEDS ORDERED: WARFARIN SODIUM 2.5 MG TAB PO ONE (16:00)
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
--- NOTE | 2018-06-20 16:59 | ASMTLACE ---
LACE Length of stay for Answers: 7-13 days current admission Acuity / Level of Answers: Yes Care: Did the patient have an inpatient admission? Comorbidities - select Answers: Cerebrovascular disease all that apply (CVA, TIA, aneurysms, vasc ular dementia) Congestive heart failure Coronary Artery Disease Previous myocardial infarction Other Notes: HTN; Hx of DVT # of Emergency department Answers: 3-4 visits in the last 6 months Score: 18 Date Signed: 06/20/2018 04:58 PM Electronically Signed By:ARIC Valadez
--- NOTE | 2018-06-20 17:05 | PDIAF ---
- Diagnosis Diagnosis: CAD Code Status: Full Code - Medication Management Discharge Medications: electronically signed and located in the Home Medication List. - Orders Services needed: Registered Nurse, Physical Therapy, Occupational Therapy Isolation Type: None Oxygen: 2L NC Diet Recommendation: cardiac -low fat low salt Diet Texture: Regular Texture Diet, Thin Liquids, Meds Whole w/Liquids Weigh Patient: daily Antoine: Not applicable Wound Care Instructions: Shower daily. Clean surgical incision with soap and water daily. Additional Instructions: No lifting, pushing or pulling greater than 15lbs for 6 weeks. No driving for 4 weeks or as long as your are taking narcotic pain medications. Shower daily and wash all incisions with soap and water. Do not submerge incisions in bathtub, hot tub or swimming pool until incision is completely healed and all scabs have fallen off. Do not apply lotions, ointments or oil to incision until incision is completely healed. - Follow Up Care Current Providers and Referrals: Javon Andersen DO [Doctor of Osteopathy] -
--- NOTE | 2018-06-20 17:13 | ASMTDCNOTE ---
Case Management Discharge Discharge Order Complete? Answers: Yes Patient to Obtain Answers: Other Notes: [facility] scheduled Medications transport Transportation Arranged Answers: Other Notes: Wheelchair via [employer] Case Management Transport Answers: Yes Form Complete Faxed Final Orders Answers: Yes Agency/Facility Transfer Answers: Yes Report Printed & Faxed to Receiving Agency Family Notified Answers: Yes Discharge Comments Notes: Pt agreeable to d/c plan. [facility] aware. DC orders sent. [facility] scheduled transportation. No other CM needs identified. Date Signed: 06/20/2018 05:13 PM Electronically Signed By:ARIC Valadez
[2018-06-21] MEDS ORDERED: FUROSEMIDE 40 MG TAB PO SCH (09:00)
[2018-06-21] MEDS ORDERED: POTASSIUM CL 20 MEQ TAB PO SCH (09:00)
[2018-06-21] MEDS ORDERED: WARFARIN SODIUM 2.5 MG TAB PO SCH (16:00)
--- NOTE | 2018-06-24 08:54 | ASDISCHSUM ---
Discharge Information Plan Status:SNF Medically Cleared to Leave:06/19/2018 Discharge Date:06/20/2018 05:35 PM CM D/C Disposition:[facility] Facility ADT D/C Disposition:[facility] Facility Projected Discharge Date:06/22/2018 11:00 AM Transportation at D/C:Wheelchair Van Discharge Delay Reason: Follow-Up Date:06/22/2018 11:00 AM Discharge Slot: Final Diagnosis: Placement Information Referral Type:*Half-Way/SNF Referral ID:[id number] Provider Name:[facility] Address 1:[address] Address 2: City:[place] Selection Factors: State:[place] Patient Contact Information Contact Name:CRYSTAL Relationship:Edel Address: Work Phone: City: [facility] Phone: [facility]/Zip Code: Email: Financial Information Financial Class:Medicare Advantage Plans Primary Plan Desc:[facility] [email or web address] Primary Plan Number:[id number] Secondary Plan Desc: Secondary Plan Number: Assessment Information LACE LACE Length of stay for Answers: 7-13 days current admission Acuity / Level of Answers: Yes Care: Did the patient have an inpatient admission? Comorbidities - select Answers: Cerebrovascular disease all that apply (CVA, TIA, aneurysms, vasc ular dementia) Congestive heart failure Coronary Artery Disease Previous myocardial infarction Other Notes: HTN; Hx of DVT # of Emergency department Answers: 3-4 visits in the last 6 months Score: 18 Date Signed: 06/20/2018 04:58 PM Electronically Signed By:ARIC Valadez [facility] CM Progress Note CM Note CM Note Notes: Pt 72 yo M on ICU post operative CABG. Pt discussed in rounds. Awaiting therapy evals. Pt discharge needs TBD. Plan: TBD Date Signed: 06/16/2018 11:20 AM Electronically Signed By:ARIC Valadez [facility] Progress Note CM Note CM Note Notes: 06/18/2018 Case Management Note Discussed with Elie Gonzalez, pt will need SNF rehab. Met w/pt and caregiver, both in agreement. Pt has previous stay at [facility] and prefers [facility] location for rehab. Faxed referral to [facility] via [employer]. Inquired about private room at pt request. If declined by [facility], pt will consider other facilities. Case Management d/c poc: [facility] SNF rehab pending acceptance. Case Management to follow. Date Signed: 06/18/2018 11:57 AM Electronically Signed By:Alyssa Cardenas RN [facility] Progress Note CM Note CM Note Notes: Pts case discussed w/ JOSUE Delgadillo and JOSUE Vallejo. The plan is for pt to d/c to [facility] tomorrow. Pt feels strongly that his caregiver should be present. Pt reports that his caregiver is able to be present on Friday. CM notified Elie of all of this. Pt is interested in appealing his d/c. CM had [employer] rep speak to pt about the appeals process. CM to follow. Plan: [facility] Date Signed: 06/19/2018 04:14 PM Electronically Signed By:ARIC Redmond Case Management Discharge Plan Note Case Management Discharge Discharge Order Complete? Answers: Yes Patient to Obtain Answers: Other Notes: [facility] scheduled Medications transport Transportation Arranged Answers: Other Notes: Wheelchair via [employer] Case Management Transport Answers: Yes Form Complete Faxed Final Orders Answers: Yes Agency/Facility Transfer Answers: Yes Report Printed & Faxed to Receiving Agency Family Notified Answers: Yes Discharge Comments Notes: Pt agreeable to d/c plan. [facility] aware. DC orders sent. [facility] scheduled transportation. No other CM needs identified. Date Signed: 06/20/2018 05:13 PM Electronically Signed By:ARIC Valadez Intervention Information Intervention Type:*IM-Signed Date of Service:06/19/2018 03:08 PM Patient Type:Inpatient Staff Member:Polina Vazquez Hours: Discipline: Severity: Comment:
== END 2018-06-20 17:35 | DRG 220 ==
LOC: F2W 09:03 → F2N 14:02 → F2W 06-17 10:07
PROVIDERS: ADMIT Thoracic Surgery (Cardiothoracic Vascular Surgery); ATTEND Thoracic Surgery (Cardiothoracic Vascular Surgery)
DX: I25.10 Atherosclerotic heart disease of native coronary artery without angina pectoris (principal); I25.82 Chronic total occlusion of coronary artery; I34.0 Nonrheumatic mitral (valve) insufficiency; I48.0 Paroxysmal atrial fibrillation; D62 Acute posthemorrhagic anemia; I11.0 Hypertensive heart disease with heart failure; I50.20 Unspecified systolic (congestive) heart failure; J45.909 Unspecified asthma, uncomplicated; M10.9 Gout, unspecified; I25.2 Old myocardial infarction; Z86.718 Personal history of other venous thrombosis and embolism; Z86.73 Personal history of transient ischemic attack (TIA), and cerebral infarction without residual deficits; Z79.01 Long term (current) use of anticoagulants; E66.9 Obesity, unspecified; Z68.24 Body mass index [BMI] 24.0-24.9, adult; Z87.891 Personal history of nicotine dependence
CPT/HCPCS: 82435-PO; 82565-PO; 82947-PO; 83605-PO; 84132-PO; 84295-PO; 84520-PO; 85014-PO; 92610-GN; 97116-GP; 97161-GP; 97166-GO; 97530-GP; 97535-GO; G8978-GP-CK; G8979-GP-CI; G8987-GO-CL; G8988-GO-CJ; G8996-GN-CH; G8997-GN-CH; G8998-GN-CH; J0153; J0282; J0690; J1170; J1265; J1644; J1815; J1885; J1940; J2001; J2150; J2250; J2260; J2270; J2370; J2405; J2440; J2704; J2720; J2930; J3010; J3475; J3480; J7613; P9016; P9017; P9041

== ENCOUNTER → 2018-06-29 | Outpatient (CLI) | payer OTHER | LOC: FIMAGING 08:05 | PROVIDERS: ATTEND Thoracic Surgery (Cardiothoracic Vascular Surgery) | DX: Z48.89 Encounter for other specified surgical aftercare (principal); J90 Pleural effusion, not elsewhere classified; J98.11 Atelectasis; Z95.1 Presence of aortocoronary bypass graft; Z95.2 Presence of prosthetic heart valve ==

== ENCOUNTER → 2018-07-15 | Outpatient (CLI) | payer OTHER | END | disposition home or self-care (01) | LOC: FIMAGING 08:28 | PROVIDERS: ATTEND Thoracic Surgery (Cardiothoracic Vascular Surgery) | DX: J90 Pleural effusion, not elsewhere classified (principal); Z86.79 Personal history of other diseases of the circulatory system; Z95.1 Presence of aortocoronary bypass graft; Z95.2 Presence of prosthetic heart valve ==

== ENCOUNTER 2018-10-14 09:12 | Day surgery (SDC) | payer OTHER ==
[2018-10-14] MEDS ORDERED: LIDOCAINE 1% 300 MG/30 ML SDV ONE (09:17)
[2018-10-14] MEDS ORDERED: LIDOCAINE 1% 300 MG/30 ML SDV SC ONE (09:18)
--- NOTE | 2018-10-14 09:46 | PDGENHP ---
History & Physical Chief Complaint: AFib, SVT, nonsustained VT History of Present Illness: History of SVT, AF, NSVT - presenting for ILR implant to monitor for arrhythmic burden. Relevant Physical Exam: A+Ox4, RR/NR, no MRG, CTAB, no focal deficits Cardiorespiratory Assessment: SVT, AFib, NSVT -> ILR implant
--- NOTE | 2018-10-14 10:17 | EPPROC ---
Electrophysiology Procedure Note: Date: 10/14/2018 [place]: Darrell Hanna MD Procedures: Implantation of cardiac loop recorder -[id number] Indications: 73-year-old male with history of valvular heart disease and CAD, status post CABG plus mitral valve repair. He has a history of SVT, paroxysmal atrial fibrillation, nonsustained VT. Implantable loop recorder is offered for surveillance and management of arrhythmias. Techniques: Following informed signed, the patient was brought to the procedure area, in a fasting nonsedated state, in sinus rhythm. The anterior chest was prepped and draped in usual sterile fashion. 1% lidocaine was infiltrated at the left sternal border, 5th intercostal space. A skin incision was made in this location, and the recorder was injected in the subcutaneous tissues, parallel to the long axis of the heart. The incision was closed with a resorbable suture, and dressed with Steri-Strips. The patient tolerated the procedure well. Recorder: Medtronic [id number], SN [id number], implant 10/14/18 0.54mV EBL: None Complications: None Plan: Keep incision dry for 3 days, device clinic follow-up in 1 week. Patient Problems: Problems Problem Status Onset Acute blood loss anemia Acute S/P CABG x 1 Acute ~06/15/18 S/P Maze operation for atrial fibrillation Acute ~06/15/18 Status post mitral valve annuloplasty Acute ~06/15/18 CAD in [place] artery Chronic Chronic anticoagulation Chronic Chronic atrial fibrillation Chronic History of stroke Chronic Ischemic cardiomyopathy Chronic Mitral regurgitation Chronic
== END 2018-10-14 10:34 | disposition home or self-care (01) ==
LOC: FCATH 09:12
PROVIDERS: ATTEND Internal Medicine Cardiovascular Disease
PROC: 0JH602Z Insertion of Monitoring Device into Chest Subcutaneous Tissue and Fascia, Open Approach (ICD-10-PCS; principal; 2018-10-14)
DX: I48.0 Paroxysmal atrial fibrillation (principal); R55 Syncope and collapse; I25.5 Ischemic cardiomyopathy; I25.10 Atherosclerotic heart disease of native coronary artery without angina pectoris; Z95.1 Presence of aortocoronary bypass graft; Z86.718 Personal history of other venous thrombosis and embolism; Z86.73 Personal history of transient ischemic attack (TIA), and cerebral infarction without residual deficits; Z95.2 Presence of prosthetic heart valve
CPT/HCPCS: C1764